=== PATIENT | male | born 1975 | race Caucasian/White ===

== ENCOUNTER → 2020-09-08 14:17 | Outpatient (CLI) | payer BC, SELFPAY ==
--- NOTE | ~2020-09-08 | XR_ITS ---
EXAMINATION: XR chest 2V EXAM DATE: 09/08/2020 14:49 INDICATION: Melanoma of back. TECHNIQUE: Frontal and lateral projections of the chest obtained and reviewed. There is no prior lisa dy for comparison. FINDINGS: The lungs are clear. There are no pleural effusions. The cardiomediastinal silhouette is within normal limits. There is no pneumothorax suspected. The bones and soft tissues are unremarkab le. IMPRESSION: Unremarkable chest x-ray exam. Reviewed, dictated and finalized at location B. [facility]CH
== END ==
PROVIDERS: Visit Provider Surgery
DX: C43.59 Malignant melanoma of other part of trunk (principal)
CPT/HCPCS: 71046

== ENCOUNTER 2021-01-28 09:46 | Outpatient (CLI) | payer BC, SELFPAY | END 2021-01-28 09:47 | disposition home or self-care (01) | LOC: ANHCOVIDVC 09:46 | DX: Z23 Encounter for immunization (principal) | CPT/HCPCS: 0001A; 91300 ==

== ENCOUNTER 2021-02-18 09:45 | Outpatient (CLI) | payer BC, SELFPAY | END 2021-02-18 09:46 | disposition home or self-care (01) | LOC: ANHCOVIDVC 09:45 | DX: Z23 Encounter for immunization (principal) | CPT/HCPCS: 0002A; 91300 ==

== ENCOUNTER → 2021-08-25 10:25 | Outpatient (CLI) | payer BC, SELFPAY ==
--- NOTE | ~2021-08-25 | XR_ITS ---
EXAMINATION: XR chest 2V 08/25/2021 10:47 INDICATION: Malignant melanoma PROCEDURE: 2 view chest COMPARISON: 09/08/2020 FINDINGS: The lungs are clear. The cardiomediastinal silhouette is within normal limits. There are no pleural effusions. There is no pneumothorax suspected. IMPRESSION: 1: NO ACUTE CARDIOPULMONARY DISEASE. Reviewed, dictated and finalized at location A. IN [place]
== END ==
PROVIDERS: Visit Provider Surgery
DX: C43.59 Malignant melanoma of other part of trunk (principal)
CPT/HCPCS: 71046

== ENCOUNTER → 2022-08-30 13:53 | Outpatient (CLI) | payer BC, SELFPAY ==
--- NOTE | ~2022-08-30 | XR_ITS ---
XR chest 2V DATE: 08/30/2022 14:02 INDICATION: History of melanoma of the back. Annual checkup. No complaints. TECHNIQUE: PA and lateral views COMPARISON: None FINDINGS: Chronic loss of height and anterior wedging of multiple lower thoracic vertebrae, stable si nce 08/25/2021. Mild thoracic dextroscoliosis. Normal heart size. No hilar or mediastinal enlargement. No pulmonary infiltrate or consolidation, ple ural effusion or pulmonary vascular congestion or pneumothorax. IMPRESSION: No active cardiopulmonary disease or significant change since 08/25/2021 Reviewed, dictated and finalized at location A. GEMENT RECRUITER IMPRESSION: No active cardiopulmonary disease or significant change since 2020
== END ==
PROVIDERS: PCP Family Medicine; Visit Provider Surgery
DX: C43.59 Malignant melanoma of other part of trunk (principal)
CPT/HCPCS: 71046

== ENCOUNTER → 2023-01-11 07:52 | Outpatient (CLI) | payer BC, SELFPAY ==
--- NOTE | ~2023-01-11 | MR_ITS ---
MRI of the right hand CLINICAL HISTORY: Pain TECHNIQUE: Axial T1-weighted and T2 fat-sat images, coronal T1-weighted and T2 fat-sat images, and sa gittal T1-weighted and T2 fat-sat images were acquired. FINDINGS: Bone marrow signals are unremarkable. There is no bone marrow edema or fracture. No evidenc e for osteomyelitis. No cortical destructive change or periosteal reaction seen. No joint effusion id entified. Collateral ligaments the visualized joints appear intact. Flexor and extensor tendons are intact. Visual is musculature of the hand is unremarkable. No soft ti ssue mass or fluid collection evident. No significant soft tissue edema identified. IMPRESSION: No significant abnormality seen. Reviewed, dictated and finalized at location .
== END ==
PROVIDERS: PCP Family Medicine; Visit Provider Orthopaedic Surgery
DX: M79.641 Pain in right hand (principal)
CPT/HCPCS: 73218

== ENCOUNTER → 2023-06-30 13:05 | Outpatient (CLI) | payer BC, SELFPAY ==
--- NOTE | ~2023-06-30 | XR_ITS ---
EXAMINATION: XR chest 2V 06/30/2023 13:31 INDICATION: Personal history of malignant melanoma. PROCEDURE: 2 view chest COMPARISON: 08/30/2022 FINDINGS: The lungs are clear. The cardiomediastinal silhouette is within normal limits. There are no pleural effusions. There is no pneumothorax suspected. IMPRESSION: 1: NO ACUTE CARDIOPULMONARY DISEASE. Reviewed, dictated and finalized at location L.
== END ==
DX: Z85.820 Personal history of malignant melanoma of skin (principal); L82.1 Other seborrheic keratosis; L57.0 Actinic keratosis; L81.4 Other melanin hyperpigmentation; D22.5 Melanocytic nevi of trunk; D22.4 Melanocytic nevi of scalp and neck; D22.61 Melanocytic nevi of right upper limb, including shoulder; D22.62 Melanocytic nevi of left upper limb, including shoulder; D22.71 Melanocytic nevi of right lower limb, including hip; L71.8 Other rosacea; D48.5 Neoplasm of uncertain behavior of skin
CPT/HCPCS: 71046

== ENCOUNTER 2024-04-13 11:00 | Emergency (ER) | payer BC, SELFPAY ==
[2024-04-13 11:02] VITALS: BP 141/112; PULSE 118; RESP 18; TEMP 36.5; O2SAT 100
--- NOTE | 2024-04-13 11:21 | PC.NURSE ---
Patient reports pain to right congregation that is worse on palpation or with clenching his jaw. patient reports family history of brain cancer and does report a self history of TMJ. patient also notes that he still has his wisdom teeth and wonders if that could be causing some discomfort.
--- NOTE | 2024-04-13 12:44 | ED.GENADULT ---
HPI - General Adult General Chief complaint: Unspecified Stated complaint: pain in R islam x 3 days Time Seen by Provider: 04/13/24 12:12 History of Present Illness HPI narrative: Patient is a 48-year-old male who presents to the emergency department this afternoon complaining of right temporal pain. Patient states that he noticed it a few days ago and call his primary care physician office and was told that his PCP is out on medical leave until the end of April. They were unable to get him to be seen any time soon and due to concern for possible temporal arteritis patient was sent here for further evaluation as he was told this is a time sensitive matter. 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 patient wears a CPAP at night, is on sure of any teeth grinding while asleep, and denies any additional symptoms or concerns at this time. Related Data Home Medications Medication Instructions Recorded Confirmed verapamil 120 mg 24 hr 120 mg PO DAILY 11/25/21 09/07/23 capsule,extended release galcanezumab-gnlm 120 mg/mL 120 mg subcut MONTHLY 04/13/22 09/07/23 subcutaneous pen injector (Emgality Pen) cholecalciferol (vitamin D3) 250 250 mcg PO WEEKLY 06/08/23 09/07/23 mcg (10,000 unit) capsule Allergies Allergy/AdvReac Type Severity Reaction Status Date / Time No Known Allergies Allergy Verified 09/06/23 10:29 Review of Systems Review of Systems: All systems are reviewed and are negative unless stated otherwise in the HPI. [facility] Past Medical History Medical History Anxiety Bee sting allergy Chronic kidney disease, stage 3a Dyslipidemia Essential (primary) hypertension Family history of prostate cancer in father GERD without esophagitis History of melanoma Intractable migraine without aura and without status migrainosus Seasonal allergies Sleep apnea in adult Social anxiety disorder Vitamin D deficiency Surgical History Surgical History History of melanoma excision x2 History of vasectomy Family History Family History Father Malignant neoplasm of prostate Other Family history of hearing loss Family history of malignant neoplasm of brain Skin cancer Social History Social History Smoking status: Never smoker Second hand tobacco smoke exposure: No Alcohol intake: current Alcohol use details: consumes 4 beers monthly Substance use: never Substance use type: does not use Lack of Transportation: No Lack of Food: Never True Current Housing: I Have Housing Concerned About Future Housing: No Difficulty Paying Gas/Electric Bills: No Difficulty Paying for Meds: No Currently Unemployed: No Education: Bachelor's Degree Difficulty w/ Childcare or Family Care: No Living arrangements: with family Occupation/Education: occupation 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 HEENT: PERRL, no rhinorrhea, no post nasal drip, oropharynx clear, tenderness to palpation over the right temporal region and right TMJ region. Cardiovascular: Regular rate and rhythm, no murmurs, rubs or gallops, no peripheral edema. Respiratory: Clear to auscultation bilaterally, no tachypnea, no wheezing, no rhonchi, no rubs, no respiratory distress. Abdomen: Soft, nontender, nondistended, no rebound, no guarding, no peritoneal signs. Musculoskeletal: No joint swelling or deformity, normal muscle tone. Skin: No rashes or petechia, no signs of infection. Neurological: Alert and oriented to person, place,
[2024-04-13 13:32] LABS: Basophils Absolute Auto 0.1 K/mm3 (0.0-0.1); Basophils Percent Auto 0.7 % (0.2-1.2); Eosinophils Absolute Auto 0.1 K/mm3 (0-0.3); Eosinophils Percent Auto 0.7 % (0-4.4); Hematocrit 44.9 % (42.0-52.0); Hemoglobin 15.3 g/dL (14.0-18.0); Immature Granulocyte Absolute 0.03 K/mm3 (0.00-0.031); Immature Granulocyte Percent A 0.4 % (0-0.5); Lymphocytes Absolute Auto 1.18 K/mm3 (0.9-3.2); Lymphocytes Percent Auto 14.2 % (18.3-44.2); Mean Corpuscular HGB Conc 34.1 g/dl (32-36); Mean Corpuscular Volume 82.2 fl (80-100); Mean Platelet Volume 11.2 fl (7.4-10.4); Monocytes Absolute Auto 0.4 K/mm3 (0.1-0.6); Neutrophils Absolute Auto 6.6 K/mm3 (1.3-6.7); Platelet Count Result 268 k/mm3 (150-375); Red Blood Count 5.46 M/mm3 (4.6-6.20); Red Cell Distribution Width 12.3 % (11.5-14.5); White Blood Count 8.3 K/mm3 (4.5-10.0)
[2024-04-13 13:46] LABS: Alanine Aminotransferase 14 U/L (6-50); Albumin Level 4.7 g/dL (3.5-5.1); Alkaline Phosphatase 47 U/L (38-126); Anion Gap 10 mmol/L (4-12); Aspartate Amino Transferase 21 U/L (17-59); Bilirubin,Total 0.8 mg/dL (0.2-1.3); Blood Urea Nitrogen 17 mg/dL (9-20); CRP < 0.5 mg/dL (<1.0); Carbon Dioxide 21 mmol/L (22-30); Chloride 112 mmol/L (98-107); Estimated CRCL calculation 77 ml/min; Estimated Glomerular Filt Rate 59; Glucose 90 mg/dL (65-110); Magnesium 2.2 mg/dL (1.6-2.3); Potassium 4.1 mmol/L (3.4-5.0); Sodium 143 mmol/L (137-145)
[2024-04-13 14:06] LABS: Erythrocyte Sedimentation Rate 11 mm/hr (0-20)
== END 2024-04-13 14:39 | disposition home or self-care (01) ==
PROVIDERS: Emergency Provider Emergency Medicine; PCP Family Medicine
DX: M26.601 Right temporomandibular joint disorder, unspecified (principal); F41.9 Anxiety disorder, unspecified; I12.9 Hypertensive chronic kidney disease with stage 1 through stage 4 chronic kidney disease, or unspecified chronic kidney disease; N18.31 Chronic kidney disease, stage 3a; K21.9 Gastro-esophageal reflux disease without esophagitis; G47.30 Sleep apnea, unspecified
CPT/HCPCS: 36415; 80053; 83735; 85025; 85652; 86140; 99283

== ENCOUNTER 2024-09-03 14:27 | Outpatient (CLI) | payer BC, SELFPAY ==
[2024-09-03 20:56] LABS: Influenza A QL RT-PCR Negative (Negative); Influenza B QL RT-PCR Negative (Negative); RSV RNA, RT-PCR Negative (Negative); SARS-CoV-2 RNA PCR Positive (Negative)
== END 2024-09-03 14:28 | disposition home or self-care (01) ==
LOC: ANHGOSHLAB 14:29
PROVIDERS: PCP Family Medicine; Visit Provider Family Medicine
DX: U07.1 COVID-19 (principal)
CPT/HCPCS: 87637

== ENCOUNTER 2025-07-15 15:23 | Observation (INO) | payer BC, SELFPAY ==
[2025-07-15] VITALS (7 sets, daily range): BP systolic 121–156; BP diastolic 70–102; PULSE 79–103; RESP 13–16; TEMP 36.4–36.9; O2SAT 92–100
--- NOTE | ~2025-07-15 | US_ITS ---
ULTRASOUND ABDOMEN LIMITED (RIGHT UPPER QUADRANT) Clinical History: Evaluate for gallstones Comparison: CT 1 day prior Technique: Right upper quadrant sonography Findings: Liver: Normal size. Echogenic. No intrahepatic biliary ductal dilatation. 2.3 cm cyst left lobe. Ill-defined lesion right lobe 3.5 cm, hypoechoic. Normal hepatopedal flow main portal vein. Common Duct: Normal caliber. 5 mm. Gallbladder: No stones. No wall thickening. No pericholecystic fluid. Pancreas: Obscured by bowel gas. IMPRESSION: 1. No acute findings. No gallstones or evidence of cholecystitis. 2. Incompletely seen lesion right lobe liver with indeterminate ultrasound characteristics, although CT characteristics most consistent with hemangioma. Recommend six-month follow-up ultrasound. Alternatively, MRI liver protocol for definitive characterization obviating need for future surveillance if in fact a hemangioma. Reviewed, dictated and finalized at location R. IMPRESSION: 1. No acute findings. No gallstones or evidence of cholecystitis. 2. Incompletely seen lesion right lobe liver with indeterminate ultrasound roverto racteristics, although CT characteristics most consistent with hemangioma. Geovanni mmend six-month follow-up ultrasound. Alternatively, MRI liver protocol for def initive characterization obviating need for future surveillance if in fact a he mangioma.
--- NOTE | ~2025-07-15 | CT_ITS ---
Exam: CT abdomen and pelvis with contrast Clinical History: [Epigastric pain and back pain ] Comparison: [ 08/14/2019] Technique: Multiple axial CT images of the abdomen and pelvis were obtained with IV contrast. Sagittal and coronal reformatted images were obtained. FINDINGS: Lung bases: [Small opacities in the lower lungs. ] 3 mm pulmonary nodule in the right middle lobe. Liver: Grossly stable probable hemangioma in the posterior segment of the right lobe of the liver. [ No intrahepatic biliary duct dilatation.] There is a 1.5 cm fluid attenuation lesion in the left lobe of the liver which is favored to represent a liver cyst. Gallbladder: [ No wall thickening or stones.] Common bile duct: [ Normal caliber.] [ No stones.] Spleen: [ Within normal limits.] Pancreas: [ No mass. No pancreatic fluid collection.] Adrenals: [ No masses.] Kidneys: [ No masses. No hydronephrosis.][ ] Lymph nodes: [ No adenopathy in the abdomen or pelvis.] Stomach, small bowel and colon: Small hiatal hernia. Thickening of the he of the duodenum and jejunum with small amount of surrounding fat stranding. Duodenitis/ileitis is possible. Recommend follow-up to resolution to exclude an underlying mass. Peritoneum cavity: [ No mesenteric fat stranding or fluid.] Bladder: [ Unremarkable.] Osseous structures: [Multilevel degenerative change in the visualized spine.] Possible old mild compression fractures in the lower thoracic spine of indeterminate age. Correlate clinically. Abdominal aorta: [ No aneurysm.] Additional findings: Small fat-containing right inguinal hernia. Small fat- containing left inguinal hernia. IMPRESSION: 1. Thickening of the he of the duodenum and jejunum with small amount of surrounding fat stranding. Duodenitis/ileitis is possible. Recommend follow-up to resolution to exclude an underlying mass. 2. Small hiatal hernia. 3. Grossly stable probable hemangioma in the posterior segment of the right lobe of the liver. 4. There is a 1.5 cm fluid attenuation lesion in the left lobe of the liver which is favored to represent a liver cyst. 5. Possible old mild compression fractures in the lower thoracic spine of indeterminate age. Correlate clinically. 6. Small fat-containing bilateral inguinal hernias, larger on the right. Findings as above. Reviewed, dictated and finalized at location Q. IMPRESSION: 1. Thickening of the he of the duodenum and jejunum with small amount of lily rounding fat stranding. Duodenitis/ileitis is possible. Recommend follow-up to resolution to exclude an underlying mass. 2. Small hiatal hernia. 3. Grossly stable probable hemangioma in the posterior segment of the right lob e of the liver. 4. There is a 1.5 cm fluid attenuation lesion in the left lobe of the liver whi ch is favored to represent a liver cyst. 5. Possible old mild compression fractures in the lower thoracic spine of indet erminate age. Correlate clinically. 6. Small fat-containing bilateral inguinal hernias, larger on the right. Findings as above.
--- NOTE | ~2025-07-15 | MR_ITS ---
EXAMINATION: MR MRCP wo/w con/w 3D wo ind DATE: 07/17/2025 11:38 INDICATION: Pancreatitis. Duodenitis. TECHNIQUE: Magnetic resonance imaging (MRI) of the abdomen was performed without and with 20 mL MultiHance intravenous contrast. Sequences included coronal T2- weighted FS FSE, coronal T2-weighted FSE, axial T1-weighted LAVA, coronal FS FIESTA, axial dual-echo T1-weighted SPGR, coronal lava-FLEX, sagittal T2- weighted FSE, axial T2-weighted FSE, and axial DWI. Thick-slab T2-weighted FSE images were obtained for magnetic resonance cholangiopancreatography (MRCP). Maximum intensity projection 3-D reconstructions of the volumetric data were created by the technologist. Postcontrast sequences included coronal LAVA-flex and time course of axial T1-weighted LAVA. COMPARISON: CT abdomen and pelvis 07/15/2025 FINDINGS: ABDOMEN MRI: There are trace pleural effusions. There is diffuse hepatic steatosis. There is a 5.3 cm mass in right hepatic lobe with interrupted peripheral puddling of contrast, consistent with a hemangioma. There are cysts in the liver measuring up to 17 mm. The gallbladder, spleen, adrenal glands, and kidneys are normal. There is fat stranding around the head of the pancreas with wall thickening of the second portion of the duodenum. There is a small sliding hiatal hernia. There are no dilated loops of bowel. There is no ascites. There are no pathologically enlarged lymph nodes. ABDOMEN MRCP: The common duct is normal and measures 2 mm. No choledocholithiasis. IMPRESSION: 1. Acute interstitial pancreatitis with secondary inflammation of the duodenum. 2. Diffuse hepatic steatosis. 3. Small sliding hiatal hernia. Reviewed, dictated and finalized at location E.
[2025-07-15 15:43] LABS: Hematocrit 45.9 % (42.0-52.0); Hemoglobin 15.2 g/dL (14.0-18.0); Immature Granulocyte Percent A 0.7 % (0-0.5); Lymphocytes Absolute Auto 1.53 K/mm3 (0.9-3.2); Mean Corpuscular HGB Conc 33.1 g/dl (32-36); Mean Corpuscular Hemoglobin 27.8 pg (26-34); Mean Corpuscular Volume 84.1 fl (80-100); Nucleated Red Blood Cells Absolute Auto 0.000 K/mm3 (0.0-0.012); Nucleated Red Blood Cells Perc 0.0 % (0.0-0.2); Platelet Count Result 353 k/mm3 (150-375); Red Blood Count 5.46 M/mm3 (4.6-6.20); White Blood Count 13.0 K/mm3 (4.5-10.0)
[2025-07-15 15:45] LABS: Add Urine Microscopic? NO; Appearance Urine Clear (Clear); Glucose Urine UA Negative (Negative); Leukocyte Esterase Ur Negative LEU/UL (Negative); Nitrate Urine Negative (Negative); Specific Grav Ur 1.028 (1.001-1.035)
[2025-07-15 15:58] LABS: Alanine Aminotransferase 28 U/L (6-50); Albumin Level 5.0 g/dL (3.5-5.1); Alkaline Phosphatase 52 U/L (38-126); Anion Gap 14 mmol/L (4-12); Aspartate Amino Transferase 31 U/L (17-59); Bilirubin,Total 0.4 mg/dL (0.2-1.3); Blood Urea Nitrogen 25 mg/dL (9-20); Calcium 9.1 mg/dL (8.4-10.2); Carbon Dioxide 22 mmol/L (22-30); Chloride 108 mmol/L (98-107); Estimated CRCL calculation 55 ml/min; Estimated Glomerular Filt Rate 40; Glucose 100 mg/dL (65-110); Potassium 3.8 mmol/L (3.4-5.0); Sodium 144 mmol/L (137-145); Total Protein 8.3 g/dL (6.3-8.2)
--- NOTE | 2025-07-15 16:05 | ED.ABDPAIN ---
HPI - Abdominal Pain General Chief Complaint: Abdominal Pain <Vilma Barr PA-C - Last Filed: 07/15/25 18:25> Stated Complaint: abdominal pain, back <GERMAN Shirley Last Filed: 07/15/25 18:25> Time Seen by Provider: 07/15/25 15:31 <Vilma Barr PA-C - Last Filed: 07/15/25 18:25> Source: patient <GERMAN Shirley Last Filed: 07/15/25 18:25> Mode of arrival: ambulatory <GERMAN Shirley Last Filed: 07/15/25 18:25> Limitations: no limitations <GERMAN Shirley Last Filed: 07/15/25 18:25> History of Present Illness HPI narrative: This is a 50 year old male that presents to the ER for abdominal pain, back pain. Ongoing since after lunch. Reports nausea. Denies fever, vomiting, diarrhea, dysuria. <GERMAN Shirley Last Filed: 07/15/25 18:25> Related Data Home Medications: Home Medications ?Medication ?Instructions ?Recorded ?Confirmed ?Last Taken ?Type galcanezumab-gnlm 120 mg/mL 120 mg subcut MONTHLY 04/13/22 07/15/25 07/08/25 History subcutaneous pen injector (Emgality Pen) cholecalciferol (vitamin D3) 50 50 mcg PO DAILY 06/13/24 07/15/25 07/14/25 History mcg (2,000 unit) tablet esomeprazole magnesium 20 mg 20 mg PO DAILY 06/13/24 07/15/25 07/15/25 History tablet,delayed release (Nexium 24HR) sumatriptan succinate 100 mg 100 mg PO .COMPLEX PRN migraine 05/08/25 07/15/25 07/14/25 History tablet (Imitrex) headache atorvastatin 10 mg tablet 10 mg PO QHS 06/12/25 07/15/25 07/14/25 History <GERMAN Shirley Last Filed: 07/15/25 18:25> Allergies/Adverse Reactions: Allergies Allergy/AdvReac Type Severity Reaction Status Date / Time No Known Allergies Allergy Verified 07/15/25 15:37 <Vilma Barr PA-C - Last Filed: 07/15/25 18:25> Review of Systems Review of Systems: All systems reviewed & are unremarkable except as noted in HPI and below <Vilma Barr PA-C - Last Filed: 07/15/25 18:25> [facility] Past Medical History Medical History: Medical History Seasonal allergies Chronic kidney disease, stage 3a Vitamin D deficiency Sleep apnea in adult Essential (primary) hypertension Family history of prostate cancer in father Dyslipidemia Anxiety Bee sting allergy History of melanoma Social anxiety disorder Intractable migraine without aura and without status migrainosus GERD without esophagitis <Vilma Barr PA-C - Last Filed: 07/15/25 18:25> Surgical History Surgical History: Surgical History History of melanoma excision x2 right nshoulder - 2022 and right lower back - 2018 History of vasectomy (~2017) <Vilma Barr PA-C - Last Filed: 07/15/25 18:25> Family History Family History: Family History Father Malignant neoplasm of prostate Other Family history of hearing loss Family history of malignant neoplasm of brain Skin cancer <Vilma Barr PA-C - Last Filed: 07/15/25 18:25> Social History Social History: Social History Smoking status: Never smoker Second hand tobacco smoke exposure: No Alcohol intake: never Alcohol use details: consumes 4 beers monthly Substance use: never Substance use type: does not use Lack of Transportation: No Lack of Food: Never True Current Housing: I Have Housing Concerned About Future Housing: No Difficulty Paying Gas/Electric Bills: No Difficulty Paying for Meds: No Currently Unemployed: No Education: Trade/Vocational Certificate Difficulty w/ Childcare or Family Care: No Living arrangements: with family Occupation/Education: occupation 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 HEAD: Normocephalic, atraumatic. EYES: EOMI. CHEST: Clear to auscultation. No respiratory distress. No wheezes rales or rhonchi HEART: Regular rate and rhythm. No murmur heard. Normal peripheral pulses. ABDOMEN: Soft, nondistended, normal active bowel sounds. Tender to palpation in the right upper quadrant and epigastrium, without guarding EXTREMITIES: Normal range of motion. No edema. SKIN: Warm, dry, no rash. NEURO: No focal deficits. Alert and oriented x3. PSYCH: Normal mood and affect <Vilma Barr PA-C - Last Filed: 07/15/25 18:25> Course Course Emergency Course: patient updated on workup and need for admission <Vilma Barr PA-C - Last Filed: 07/15/25 18:25> [employer] WRESTLER/PA Physician Supervision This visit was performed by both a physician and an APC. I performed all aspects of the MDM as documented. <Ramirez Lawler MD - Last Filed: 07/15/25 21:01> Consultations Consultation #1: Spoke with hospitalist about patient and workup who accepts admission <Vilma Barr PA-C - Last Filed: 07/15/25 18:25> Date: 07/15/25 <Vilma Barr PA-C - Last Filed: 07/15/25 18:25> Consultation #2: Spoke with GI who will consult <Vilma Barr PA-C - Last Filed: 07/15/25 18:25> Date: 07/15/25 <GERMAN Shirley Last Filed: 07/15/25 18:25> Vital Signs Vital signs: Vital Signs Temperature 97.6 F 07/15/25 15:28 Pulse Rate 103 H 07/15/25 15:28 Respiratory Rate 13 07/15/25 15:28 Blood Pressure 153/102 H 07/15/25 15:28 Pulse Oximetry 100 07/15/25 15:28 Oxygen Delivery Room Air 07/15/25 15:28 Temperature 97.8 F 07/15/25 18:11 Pulse Rate 86 07/15/25 18:42 Respiratory Rate 15 07/15/25 18:42 Blood Pressure 156/98 H 07/15/25 18:42 Pulse Oximetry 100 07/15/25 18:42 Oxygen Delivery Room Air 07/15/25 15:28 <Vilma Barr PA-C - Last Filed: 07/15/25 18:25> Vital Signs Temperature 97.6 F 07/15/25 15:28 Pulse Rate 103 H 07/15/25 15:28 Respiratory Rate 13 07/15/25 15:28 Blood Pressure 153/102 H 07/15/25 15:28 Pulse Oximetry 100 07/15/25 15:28 Oxygen Delivery Room Air 07/15/25 15:28 Temperature 97.8 F 07/15/25 18:11 Pulse Rate 86 07/15/25 18:42 Respiratory Rate 15 07/15/25 18:42 Blood Pressure 156/98 H 07/15/25 18:42 Pulse Oximetry 100 07/15/25 18:42 Oxygen Delivery Room Air 07/15/25 15:28 <Ramirez Lawler MD - Last Filed: 07/15/25 21:01> MDM - Abdominal Pain MDM Narrative Medical decision making narrative: Patient presents to the emergency department for epigastric abdominal pain with radiation to the back. He is afebrile and nontoxic appearing. Tachycardic upon arrival, this normalized with IV fluids. CBC with mild leukocytosis to 13. Metabolic panel with some evidence of dehydration. Patient hydrated with 2 L of IV fluids. Lipase is 2702. Urine without evidence of infection. CT abdomen pelvis showing duodenitis/ileitis. Several incidental findings including hiatal hernia, liver cysts, old compression fractures, inguinal hernias. patient updated on workup and need for admission. Spoke with hospitalist about patient and workup who accepts admission. Will consult GI <Vilma Barr PA-C - Last Filed: 07/15/25 18:25> Differential Diagnosis Differential diagnosis: Likely gastroenteritis, pancreatitis and other (biliary colic) <Vilma Barr PA-C - Last Filed: 07/15/25 18:25> Lab Data Attestation: I reviewed the patient's lab results. <Vilma Barr PA-C - Last Filed: 07/15/25 18:25> Result diagrams: 07/15/25 15:36 07/15/25 15:36 <Vilma Barr PA-C - Last Filed: 07/15/25 18:25> Labs: Lab Results 07/15/25 07/15/25 Range/Units 15:35 15:36 WBC 13.0 H (4.5-10.0) K/mm3 RBC 5.46 (4.6-6.20) M/mm3 Hgb 15.2 (14.0-18.0) g/dL Hct 45.9 (42.0-52.0) % MCV 84.1 (80-100) fl MCH 27.8 (26-34) pg MCHC 33.1 (32-36) g/dl RDW 12.5 (11.5-14.5) % Plt Count 353 (150-375) k/mm3 MPV 10.8 H (7.4-10.4) fl Immature Gran % (Auto) 0.7 H (0-0.5) % Neut % (Auto) 81.3 H (45.5-73.1) % Lymph % (Auto) 11.8 L (18.3-44.2) % Bledsoe % (Auto) 4.8 (2.6-8.5) % Eos % (Auto) 0.6 (0-4.4) % Baso % (Auto) 0.8 (0.2-1.2) % Lymph # (Auto) 1.53 (0.9-3.2) K/mm3 Bledsoe # (Auto) 0.6 (0.1-0.6) K/mm3 Eos # (Auto) 0.1 (0-0.3) K/mm3 Baso # (Auto) 0.1 (0.0-0.1) K/mm3 Abs Immat Gran (auto) 0.09 H (0.00-0.031) K/mm3 Absolute Neuts (auto) 10.6 H (1.3-6.7) K/mm3 Absolute Nucleated RBC 0.000 (0.0-0.012) K/mm3 Nucleated RBC % 0.0 (0.0-0.2) % Sodium 144 (137-145) mmol/L Potassium 3.8 (3.4-5.0) mmol/L Chloride 108 H (98-107) mmol/L Carbon Dioxide 22 (22-30) mmol/L Anion Gap 14 H (4-12) mmol/L BUN 25 H (9-20) mg/dL Creatinine 1.80 H (0.7-1.3) mg/dL Estim Creat Clear Calc 55 ml/min Estimated GFR 40 L (59 - ) Glucose 100 (65-110) mg/dL Calcium 9.1 (8.4-10.2) mg/dL Total Bilirubin 0.4 (0.2-1.3) mg/dL AST 31 (17-59) U/L ALT 28 (6-50) U/L Alkaline Phosphatase 52 (38-126) U/L Total Protein 8.3 H (6.3-8.2) g/dL Albumin 5.0 (3.5-5.1) g/dL Triglycerides 245 H (<150) mg/dL Lipase 2702 H (23-300) U/L Urine Color Yellow (Yellow) Urine Appearance Clear (Clear) Urine pH 5.5 (5.0-9.0) Ur Specific Dante 1.028 (1.001-1.035) Urine Protein Negative (Negative) mg/dL Urine Glucose (UA) Negative (Negative) mg/dL Urine Ketones Negative (Negative) mg/dL Ur Blood (Man) Negative (Negative) Urine Nitrate Negative (Negative) Urine Bilirubin Negative (Negative) Urine Urobilinogen 1.0 (<2.0) mg/dL Leukocyte Esterase Rfl Negative (Negative) MERVAT/UL <Vilma Barr PA-C - Last Filed: 07/15/25 18:25> Lab Results 07/15/25 07/15/25 Range/Units 15:35 15:36 WBC 13.0 H (4.5-10.0) K/mm3 RBC 5.46 (4.6-6.20) M/mm3 Hgb 15.2 (14.0-18.0) g/dL Hct 45.9 (42.0-52.0) % MCV 84.1 (80-100) fl MCH 27.8 (26-34) pg MCHC 33.1 (32-36) g/dl RDW 12.5 (11.5-14.5) % Plt Count 353 (150-375) k/mm3 MPV 10.8 H (7.4-10.4) fl Immature Gran % (Auto) 0.7 H (0-0.5) % Neut % (Auto) 81.3 H (45.5-73.1) % Lymph % (Auto) 11.8 L (18.3-44.2) % Bledsoe % (Auto) 4.8 (2.6-8.5) % Eos % (Auto) 0.6 (0-4.4) % Baso % (Auto) 0.8 (0.2-1.2) % Lymph # (Auto) 1.53 (0.9-3.2) K/mm3 Bledsoe # (Auto) 0.6 (0.1-0.6) K/mm3 Eos # (Auto) 0.1 (0-0.3) K/mm3 Baso # (Auto) 0.1 (0.0-0.1) K/mm3 Abs Immat Gran (auto) 0.09 H (0.00-0.031) K/mm3 Absolute Neuts (auto) 10.6 H (1.3-6.7) K/mm3 Absolute Nucleated RBC 0.000 (0.0-0.012) K/mm3 Nucleated RBC % 0.0 (0.0-0.2) % Sodium 144 (137-145) mmol/L Potassium 3.8 (3.4-5.0) mmol/L Chloride 108 H (98-107) mmol/L Carbon Dioxide 22 (22-30) mmol/L Anion Gap 14 H (4-12) mmol/L BUN 25 H (9-20) mg/dL Creatinine 1.80 H (0.7-1.3) mg/dL Estim Creat Clear Calc 55 ml/min Estimated GFR 40 L (59 - ) Glucose 100 (65-110) mg/dL Calcium 9.1 (8.4-10.2) mg/dL Total Bilirubin 0.4 (0.2-1.3) mg/dL AST 31 (17-59) U/L ALT 28 (6-50) U/L Alkaline Phosphatase 52 (38-126) U/L Total Protein 8.3 H (6.3-8.2) g/dL Albumin 5.0 (3.5-5.1) g/dL Triglycerides 245 H (<150) mg/dL Lipase 2702 H (23-300) U/L Urine Color Yellow (Yellow) Urine Appearance Clear (Clear) Urine pH 5.5 (5.0-9.0) Ur Specific Dante 1.028 (1.001-1.035) Urine Protein Negative (Negative) mg/dL Urine Glucose (UA) Negative (Negative) mg/dL Urine Ketones Negative (Negative) mg/dL Ur Blood (Man) Negative (Negative) Urine Nitrate Negative (Negative) Urine Bilirubin Negative (Negative) Urine Urobilinogen 1.0 (<2.0) mg/dL Leukocyte Esterase Rfl Negative (Negative) MERVAT/UL <Ramirez Lawler MD - Last Filed: 07/15/25 21:01> Imaging Data Radiologist's impression: ITS Impressions Abdomen/Pelvis CT 07/15/25 16:18 IMPRESSION: 1. Thickening of the he of the duodenum and jejunum with small amount of surrounding fat stranding. Duodenitis/ileitis is possible. Recommend follow-up to resolution to exclude an underlying mass. 2. Small hiatal hernia. 3. Grossly stable probable hemangioma in the posterior segment of the right lobe of the liver. 4. There is a 1.5 cm fluid attenuation lesion in the left lobe of the liver which is favored to represent a liver cyst. 5. Possible old mild compression fractures in the lower thoracic spine of indeterminate age. Correlate clinically. 6. Small fat-containing bilateral inguinal hernias, larger on the right. Findings as above. <Vilma Barr PA-C - Last Filed: 07/15/25 18:25> ITS Impressions Abdomen/Pelvis CT 07/15/25 16:18 IMPRESSION: 1. Thickening of the he of the duodenum and jejunum with small amount of surrounding fat stranding. Duodenitis/ileitis is possible. Recommend follow-up to resolution to exclude an underlying mass. 2. Small hiatal hernia. 3. Grossly stable probable hemangioma in the posterior segment of the right lobe of the liver. 4. There is a 1.5 cm fluid attenuation lesion in the left lobe of the liver which is favored to represent a liver cyst. 5. Possible old mild compression fractures in the lower thoracic spine of indeterminate age. Correlate clinically. 6. Small fat-containing bilateral inguinal hernias, larger on the right. Findings as above. <Ramirez Lawler MD - Last Filed: 07/15/25 21:01> Critical Care Time Critical Care Time Critical Care Time: No <Vilma Barr PA-C - Last Filed: 07/15/25 18:25> Discharge Plan Discharge Clinical Impression: Dehydration, Duodenitis Pancreatitis Qualifiers: Chronicity: acute Pancreatitis type: unspecified pancreatitis type Acute pancreatitis complication: no infection or necrosis Qualified Code(s): K85.90 - Acute pancreatitis without necrosis or infection, unspecified <Vilma Barr PA-C - Last Filed: 07/15/25 18:25> Patient Disposition: Still a Patient <Vilma Barr PA-C - Last Filed: 07/15/25 18:25> Condition: Stable <Vilma Barr PA-C - Last Filed: 07/15/25 18:25>
[2025-07-15] MEDS: MORPHINE SULFATE (*CRX) 4 MG/ML INJ IV PUSH (16:06)
[2025-07-15] MEDS: FAMOTIDINE 20 MG/2 ML VIAL IV PUSH (16:06)
[2025-07-15] MEDS: ONDANSETRON INJ 4 MG/2 ML VIAL IV PUSH ×2 (16:06→20:39)
[2025-07-15] MEDS: LACTATED RINGERS 1,000 ML 999 ML IV CONT ×2 (16:06→17:45)
[2025-07-15 16:08] LABS: Lipase 2702 U/L (23-300)
--- OUTSIDE RECORDS SUMMARY | 2025-07-15 16:14 | XMS_ITS | Encounter Summary ---
Author Organization [facility] Address [address] [place] [address] Phone Care Team Providers Care Director Of Mechanical Engineering Name Role Phone Yuniel Perkins MD Primary Care Provider Love De La Rosa APRN, SHIPPING CLERK Unavailable [phone] Lianet Lombardo APRN, SOFTBALL WINDER Unavailable [phone] Bryce Servin MD Unavailable Reason for Visit * Reason Comments Medication Refill Encounter Details Date Type Department Care Team (Late st Contact Info) Description 03/21/2024 Refill [facility] - Neurology [facility] [address] [place] [id number] Love De La Rosa, ONCOLOGY PHYSICIAN ASSISTANT, SHIPPING CLERK [address] [place] [address] Medication Refill Social History Tobacco Use Types Packs/Day Years Used Date Smoking Tobacco: Never Smokeless Tobacco: Never Alcohol Use Standard Drinks/Week Comments Not Currently 0 (1 standard drink = 0.6 oz pur e alcohol) Sex and Gender Information Value Date Recorded Sex Assigned at Not on file Legal Sex Male 11:25 AM CDT Gender Identity Not on file Sexual Orientation Not on file documented as of this encounter Miscellaneous Notes * Telephone Encounter - Fannie Rivas RN - 03/21/2024 9:46 AM CDT Medication failed the protocol, provider to review and approve the medication order if appropriate. Requested Prescriptions Pending Prescriptions Disp Refills verapamil CR (VERELAN) 120 MG CAPSULE SR 24 HR [Pharmacy Med Name: Verapamil HCl ER 120 MG Oral Capsule Extended Release 24 Hour] 90 Capsule 0 Sig: Take 1 capsule by mouth once daily Calcium-Channel Blockers Protocol Failed - 03/21/2024 9:32 AM Failed - BP on record in the past year Clinician-entered: BP Readings from Last 3 Encounters: 02/21/23 126/82 01/10/23 122/68 10/12/22 124/88 Patient-entered: No data recorded Passed - Visit with relevant provider in past 12 months or upcoming 90 days Recent Visits Date Type Provider Dept 07/01/23 Telemedicine Love De La Rosa APRN, SHIPPING CLERK [facility] Showing recent visits within past 365 days and meeting all other requirements Future Appointments No visits were found meeting these conditions. Showing future appointments within next 90 days and meeting all other requirements documented in this encounter Plan of Treatment Upcoming Encounters Date Type Department Care Team (Late st Contact Info) Description 02/21/2026 10:00 AM CDT Telemedicine [facility] - Pulmonology & Sleep Medicine - [place] [address] [place] [address] Lianet Lombardo APRN, SOFTBALL WINDER [address] [address] 07/14/2026 9:00 AM CDT Telemedicine [facility] - Neurology - [place] [address] [place] [address] Love De La Rosa APRN, SHIPPING CLERK [address] [place] [address] documented as of this encounter Visit Diagnoses Not on filedocumented in this encounter Care Teams Director Of Mechanical Engineering Relationship Specialty Start Date End Date Yuniel Perkins MD PCP - General Family Medicine 07/13/21 Love De La Rosa APRN, SHIPPING CLERK [address] [place] [address] Nurse Practitioner Advanced Practice Nurse 01/04/22 Lianet Lombardo APRN, SOFTBALL WINDER [address] [address] Nurse Practitioner Advanced Practice Nurse 02/15/22 Bryce Servin MD [address] [place] [address] Consulting Physician Pulmonary Disease 02/21/23 documented as of this encounter
--- OUTSIDE RECORDS SUMMARY | 2025-07-15 16:14 | XMS_ITS | Encounter Summary ---
Author Organization [facility] Address [address] [place] [address] Phone Care Team Providers Care Commercial Real Estate Appraiser Name Role Phone Yuniel Perkins MD Primary Care Provider Love De La Rosa APRN, FUR FINISHER TAILOR Unavailable [phone]- [phone] Lianet Lombardo APRN, COURT STENOGRAPHER Unavailable [phone]- [phone] Bryce Servin MD Unavailable Reason for Visit * Reason Comments Medication Refill Encounter Details Date Type Department Care Team (Late st Contact Info) Description 08/14/2023 Refill [facility] - Neurology [facility] [address] [place] [phone] Love De La Rosa, WOOD PATTERN MAKER, FUR FINISHER TAILOR [address] [place] [address] Medication Refill Social History Tobacco Use Types [...] encounter Miscellaneous Notes * Telephone Encounter - Susan Jay RN - 08/15/2023 11:34 AM CDT Medication refilled and signed per [facility] chronic medication standing order for pediatric and adult patients. documented in this encounter Plan of Treatment Upcoming Encounters Date Type Department Care Team (Late st Contact Info) Description 02/21/2026 10:00 AM CDT Telemedicine [facility] - Pulmonology & Sleep Medicine - [place] [address]2 [place] [address] Lianet Lombardo APRN, COURT STENOGRAPHER #[address] [address] 07/14/2026 9:00 AM CDT Telemedicine [facility] Neurology - [place] [address] [place] [address] Love De La Rosa APRN, FUR FINISHER TAILOR [address] [place] [address] documented as of this encounter Visit Diagnoses Not on filedocumented in this encounter Care Teams Commercial Real Estate Appraiser Relationship Specialty Start Date End Date Yuniel Perkins MD PCP - General Family Medicine 07/13/21 Love De La Rosa APRN, FUR FINISHER TAILOR [address] [place] [address] Nurse Practitioner Advanced Practice Nurse 01/04/22 Lianet Lombardo APRN, COURT STENOGRAPHER #[address] [address] Nurse Practitioner Advanced Practice Nurse 02/15/22 Bryce Servin MD [address]2 [place] [address] Consulting Physician Pulmonary Disease 02/21/23 documented as of this encounter
--- OUTSIDE RECORDS SUMMARY | 2025-07-15 16:14 | XMS_ITS | Encounter Summary ---
Author Organization [facility] Address [address] [place] [address] Phone Care Team Providers Care Search Manager Name Role Phone Yuniel Perkins MD Primary Care Provider Love De La Rosa APRN, MIDDLE SCHOOL LIBRARIAN Unavailable [phone]- [phone] Lianet Lombardo APRN, HOME COMFORT ADVISOR Unavailable [phone]- [phone] Bryce Servin MD Unavailable Reason for Visit * Reason Comments Medication Refill Encounter Details Date Type Department Care Team (Late st Contact Info) Description 12/26/2023 Refill [facility] - Neurology [facility] [address]2 [place] [phone] Love De La Rosa, COOK RESTAURANT, MIDDLE SCHOOL LIBRARIAN [address] [place] [address] Medication Refill Social History Tobacco Use Types [...] encounter Miscellaneous Notes * Telephone Encounter - Libertad Degroot RN - 12/26/2023 11:18 AM CDT Medication(s) refilled and signed per [facility] Chronic Medication Refill Standing Order for Pediatricand Adult Patients. Requested Prescriptions Pending Prescriptions Disp Refills verapamil CR (VERELAN) 120 MG CAPSULE SR 24 HR [Pharmacy Med Name: Verapamil HCl ER 120 MG Oral Capsule Extended Release 24 Hour] 90 Capsule 0 Sig: Take 1 capsule by mouth once daily Calcium-Channel Blockers Protocol Passed - 12/26/2023 11:10 AM Passed - BP on record in the past year Clinician-entered: BP Readings from Last 3 Encounters: 02/21/23 126/82 01/10/23 122/68 10/12/22 124/88 Patient-entered: No data recorded Passed - Visit with relevant provider in past 12 months or upcoming 90 days Recent Visits Date Type Provider Dept 07/01/23 Telemedicine Love De La Rosa APRN, [facility] Neurology [facility] 01/10/23 Office Visit Love De La Rosa APRN, [facility] Neurology [facility] Showing recent visits within past 365 days and meeting all other requirements Future Appointments No visits were found meeting these conditions. Showing future appointments within next 90 days and meeting all other requirements documented in this encounter Plan of Treatment Upcoming Encounters Date Type Department Care Team (Late st Contact Info) Description 02/21/2026 10:00 AM CDT Telemedicine [facility] - Pulmonology & Sleep Medicine [facility] [address] [place] [address] Lianet Lombardo APRN, HOME COMFORT ADVISOR #[address] [address] 07/14/2026 9:00 AM CDT Telemedicine [facility] - Neurology - [place] [address] [place] [address] Love De La Rosa APRN, MIDDLE SCHOOL LIBRARIAN [address] [place] [address] documented as of this encounter Visit Diagnoses Not on filedocumented in this encounter Care Teams Search Manager Relationship Specialty Start Date End Date Yuniel Perkins MD PCP - General Family Medicine 07/13/21 Love De La Rosa APRN, MIDDLE SCHOOL LIBRARIAN [address] [place] [address] Nurse Practitioner Advanced Practice Nurse 01/04/22 Lianet Lombardo APRN, HOME COMFORT ADVISOR #[address] [address] Nurse Practitioner Advanced Practice Nurse 02/15/22 Bryce Servin MD [address] [place] [address] Consulting Physician Pulmonary Disease 02/21/23 documented as of this encounter
--- OUTSIDE RECORDS SUMMARY | 2025-07-15 16:14 | XMS_ITS | Encounter Summary ---
Author Organization [facility] Address [address] [place] [address] Phone Care Team Providers Care Aircraft Powertrain Repairer Name Role Phone Yuniel Perkins MD Primary Care Provider Love De La Rosa APRN, FILM WRITER Unavailable Lianet Lombardo APRN, FINISH SANDER Unavailable [phone]- [phone] Bryce Servin MD Unavailable Reason for Visit * Reason Comments Medication Refill Encounter Details Date Type Department Care Team (Late Contact Info) Description 04/08/2022 [facility] - [facility] [address]2 [place] [phone] Love De La Rosa, RESTAURANT MANAGER, FILM WRITER [address] [place] [address] Medication Refill Social History Tobacco Use Types [...] on file documented as of this encounter Plan of Treatment Upcoming Encounters Date Type Department Care Team (Late Contact Info) Description 02/21/2026 10:00 AM CDT Telemedicine [facility] - Pulmonology & Sleep Medicine - [place] [address] [place] [address] Lianet Lombardo APRN, FINISH SANDER [address] [place] [facility] [address] [place] [address] 07/14/2026 9:00 AM CDT [facility] [place] [address] [place] [facility] [place] [address] Love De La Rosa APRN, FILM WRITER [address] [place] [address] documented as of this encounter Visit Diagnoses Not on filedocumented in this encounter Care Teams Aircraft Powertrain Repairer Relationship Specialty Start Date End Date Yuniel Perkins MD PCP - General Family Medicine 07/13/21 Love De La Rosa APRN, FILM WRITER [address] [place] [address] Nurse Practitioner Advanced Practice Nurse 01/04/22 Lianet Lombardo APRN, FINISH SANDER [address] [address] Nurse Practitioner Advanced Practice Nurse 02/15/22 Bryce Servin MD [address] [facility] [place] [address] Consulting Physician Pulmonary Disease 02/21/23 documented as of this encounter
--- OUTSIDE RECORDS SUMMARY | 2025-07-15 16:14 | XMS_ITS | Encounter Summary ---
Author Organization [facility] Address [address] [place] [address] Phone Care Team Providers Care Concrete Batch Plant Operator Name Role Phone Yuniel Perkins MD Primary Care Provider Love De La Rosa APRN, PACKAGE WINDER Unavailable [phone]- [phone] Lianet Lombardo APRN, COORDINATOR OF EVALUATION Unavailable [phone]- [phone] Bryce Servin MD Unavailable Reason for Visit * Reason Comments Medication Refill Encounter Details Date Type Department Care Team (Late st Contact Info) Description 02/08/2022 Refill [facility] - Neurology [facility] [address]2 [place] [phone] Love De La Rosa, TOBY MAKER, PACKAGE WINDER [address] [place] [address] Medication Refill Social History Tobacco Use Types Packs/Day Years Used Date Smoking Tobacco: Never Smokeless Tobacco: Never Alcohol Use Standard Drinks/Week Comments Not Currently 0 (1 standard drink = 0.6 oz pur e alcohol) Sex and Gender Information Value Date Recorded Sex Assigned at Not on file Legal Sex Male 11:25 AM CDT Gender Identity Not on file Sexual Orientation Not on file COVID-19 Exposure Response Date Recorded In the last 10 days, have yo u been in contact with someone who was confirmed or suspected to have Coronavirus/COVID-19? No / Unsure 01/21/2022 9:41 AM CDT documented as of this encounter Plan of Treatment Upcoming Encounters Date Type Department Care Team (Late st Contact Info) Description 02/21/2026 10:00 AM CDT [facility] - [place] [address]2 [facility] [address] Lianet Lombardo APRN, COORDINATOR OF EVALUATION [address]2 [facility] [address] [place] [address] 07/14/2026 9:00 AM CDT [facility] - [place] [address]2 [facility] [address] Love De La Rosa APRN, PACKAGE WINDER [address]2 [facility] [place] [address] documented as of this encounter Visit Diagnoses Not on filedocumented in this encounter Care Teams Concrete Batch Plant Operator Relationship Specialty Start Date End Date Yuniel Perkins MD PCP - General Family Medicine 07/13/21 Love De La Rosa APRN, PACKAGE WINDER [address] [place] [address] Nurse Practitioner Advanced Practice Nurse 01/04/22 Lianet Lombardo APRN, COORDINATOR OF EVALUATION [address]2 [facility] [address] [place] [address] Nurse Practitioner Advanced Practice Nurse 02/15/22 Bryce Servin MD [address]2 [facility] [place] [address] Consulting Physician Pulmonary Disease 02/21/23 documented as of this encounter
--- OUTSIDE RECORDS SUMMARY | 2025-07-15 16:14 | XMS_ITS | Encounter Summary ---
Author Organization [facility] Address [address] [place] [address] Care Team Providers Care Pot Filler Name Role Phone Yuniel Perkins MD Primary Care Provider Encounter Details Date Type Department Care Team (Late st Contact Info) Description 05/11/2018 Lab Requisition [facility] Care DermPath Lab [address] [facility] [place] [phone] Yohannes Gibson MD [address] [place], [place] [phone] Social History Tobacco Use Types Packs/Day Years Used Date Smoking Tobacco: Never Assessed Sex and Gender Information Value Date Recorded Sex Assigned at Not on file Legal Sex Male 4:30 PM CDT Gender Identity Not on file Sexual Orientation Not on file documented as of this encounter Plan of Treatment Not on file documented as of this encounter Procedures Procedure Name Priority Date/Time Associated Diagnosis Comments DERMPATH SLIDE CONSULT Routine 05/12/2018 12:00 AM CDT documented in this encounter Results * DERMPATH SLIDE CONSULT (05/12/2018 12:00 AM CDT) Case Report Dermatopathology Report Case: [id number] Authorizing Provider: Yohannes Gibson MD Collected: 05/12/2018 12:00 AM Pathologist: Ana Maria Christine MD Received: 05/11/2018 04:32 PM Specimen: Slide(s), Mid lower back, OSC# [id number] 2:35 PM CDT DERMATOPATHOLOGY LABORATORY Final Diagnosis Specimen A. Slide(s), Mid lower back, OSC# [id number]: MALIGNANT MELANOMA,SUPERFICIA L SPREADING TYPE (C43.59) FOCALLY PRESENT AT MARGIN (see microscopic description and synoptic report) 2:35 PM T DERMATOPATHOLOGY LABORATORY at 1434 CDT Clinical History Materials received from: [employer] [address] [place] [id number] Received at the request of Dr. Yohannes Gibson, a consult will be performed on 1 slide(s) labeled [id number]. Bx Date: 05/01/2018 MM vs neoplasia. All slides returned. Any additional sections, special stains or immunohistochemical stains performed by our laboratory will be kept here on file. 2:35 PM T DERMATOPATHOLOGY LABORATORY Microscopic Description Specimen A. Slide(s), Mid lower back, OSC# [id number]: There is a proliferation melanocytes distributed in an irregular pattern singly and in nests at all levels of the epidermis. In the dermis there are a few irregular nests and single scattered melanocytes. There is a lymphohistiocytic infiltrate within the dermis. This lesion is focally present at the margin of the specimen. 2:35 PM CDT DERMATOPATHOLOGY LABORATORY Disclaimer An external and internal positive and negative controls are appropriate for the histochemical, immunohistochemical and immunofluorescence stain(s) in this case (if any), except where stated explicitly. The performance characteristics of the stain(s) cited in this report were developed and its performance characteristic determined by the Dermatopathology Laboratory at [facility]. These tests need not be, and therefore are not, approved by the [place] Food and Drug Administration. The tests are used for clinical purposes. Billing Codes Specimen Charges Stain Charges 86737 1 2:35 PM CDT DERMATOPATHOLOGY LABORATORY Synoptic Report MELANOMA OF THE SKIN: Biopsy (Melanoma Bx - A) SPECIMEN Procedure: Biopsy, shave Specimen Laterality: Midline TUMOR Tumor Site: Skin of trunk: mid lower back : Histologic Type: Superficial spreading melanoma Maximum Tumor (Breslow) Thickness in Millimeters (mm): At least: 0.5 Millimeters (mm) : Tumor is present at the surgical margin; therefore, final depth may exceed current one. Tumor Extent: Anatomic (Myron) Level: II (melanoma present in but does not fill and expand papillary dermis) Ulceration: Not identified Accessory Findings: Mitotic Rate: None identified Lymphovascular Invasion: Not identified Neurotropism: Not identified Tumor-Infiltrating Lymphocytes: Present, brisk Tumor Regression: Not identified MARGINS: Peripheral Margins: Uninvolved by invasive melanoma Status of Melanoma In Situ Involvement at Peripheral Margins: Involved by melanoma in situ Deep Margin: Uninvolved by invasive melanoma PATHOLOGIC STAGE CLASSIFICATION (pTNM, AJCC 8th Edition): Primary Tumor (pT): pT1a 8 2:35 PM CDT DERMATOPATHOLOGY LABORATORY Embedded Images 8 2:35 PM CDT DERMATOPATHOLOGY LABORATORY Pathology/Cytolog y SLIDE / Unknown 05/12/2018 05/11/2018 4:32 PM CDT Yohannes Gibson MD LAB - PATHOLOGY/CYTOLOGY ORDERAB LES Final Result DERMATOPATHOLOGY LABORATORY [facility] - Department of Dermatology [address] [place] [address] 5th Floor Lab [address] [phone] documented in this encounter Visit Diagnoses Not on filedocumented in this encounter Care Teams Pot Filler Relationship Specialty Start Date End Date Yuniel Perkins MD [address] [place] [address] PCP - General Family Medicine 06/05/18 documented as of this encounter
--- OUTSIDE RECORDS SUMMARY | 2025-07-15 16:14 | XMS_ITS | Encounter Summary ---
Author Organization [facility] Address [address] [place] [address] Care Team Providers Care Plasterer Apprentice Name Role Phone Yuniel Perkins MD Primary Care Provider Encounter Details Date Type Department Care Team (Late st Contact Info) Description 11/02/2024 Lab Requisition [facility] - DermPath Lab [address] [facility] [place] [phone] Rosy Dodd MD [address] [place] [address] [place] [address] Melanoma in situ of other part of trunk Social History Tobacco Use Types Packs/Day Years Used Date Smoking Tobacco: Never Smokeless Tobacco: Never Alcohol Use Standard Drinks/Week Comments Not Currently 0 (1 standard drink = 0.6 oz pur e alcohol) 1 MONTH Sex and Gender Information Value Date Recorded Sex Assigned at Not on file Legal Sex Male 4:30 PM CDT Gender Identity Not on file Sexual Orientation Not on file documented as of this encounter Plan of Treatment Not on file documented as of this encounter Procedures Procedure Name Priority Date/Time Associated Diagnosis Comments DERMATOPATHOLOGY Routine 11/02/2024 12:0 0 AM RUG FRAME MOUNTER 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 SKIN, left mid back: DERMAL SCAR RESIDUAL MELANOMA IN SITU NOT IDENTIFIED (L90.5) 5:09 PM [facility] DERMATOPATHOLOGY LABORATORY at 1709 RUG FRAME MOUNTER Clinical History Melanoma in situ. Check margins 5:09 PM [facility] DERMATOPATHOLOGY LABORATORY Gross Description Specimen A: Received is one formalin filled container labeled with the patient's name and designated left mid back. The specimen consists of a non-oriented ellipse of skin measuring [id number] mm. The margin is inked green. The 12 o'clock and 6 o'clock tips are submitted in cassette 1. The remainder of the ellipse is serially sectioned and submitted in cassette 2-4. Jar 0. 5:09 PM [facility] DERMATOPATHOLOGY LABORATORY Microscopic Description Specimen A. SKIN, left mid back: There are fibroblasts and collagen bundles oriented parallel to the skin surface. There are elongated blood vessels, some of which are oriented perpendicular to the skin surface. No residual melanoma in situ is identified. 5:09 PM [facility] DERMATOPATHOLOGY LABORATORY Disclaimer An external and internal positive and negative controls are appropriate for the histochemical, immunohistochemical and immunofluorescence stain(s) in this case (if any), except where stated explicitly. The performance characteristics of the stain(s) cited in this report were developed and its performance characteristic determined by the Dermatopathology Laboratory at [facility], directed by Dr. Abigail Lawrence. These tests need not be, and therefore are not, approved by the [place] Food and Drug Administration. The tests are used for clinical purposes. Billing Codes Specimen Charges Stain Charges 97706 1 5:09 PM [facility] DERMATOPATHOLOGY LABORATORY Embedded Images 5:09 PM [facility] DERMATOPATHOLOGY LABORATORY Pathology/Cytolog y TISSUE SPECIMEN FROM SKIN / Unknown 11/02/2024 11/05/2024 1:56 PM RUG FRAME MOUNTER us Rosy Dodd MD LAB - PATHOLOGY/CYTOLOGY ORDERAB LES Final Result DERMATOPATHOLOGY LABORATORY [facility] - Department of Dermatology [address] [phone] documented in this encounter Visit Diagnoses Diagnosis Melanoma in situ of other part of trunk (HCC) documented in this encounter Care Teams Plasterer Apprentice Relationship Specialty Start Date End Date Yuniel Perkins MD [address] [place] [address] PCP - General Family Medicine 06/05/18 documented as of this encounter
--- OUTSIDE RECORDS SUMMARY | 2025-07-15 16:14 | XMS_ITS | Clinical Summary ---
Author Organization [facility] Address [address] [place] [address] Care Team Providers Care Occ Ther Name Role Phone Yuniel Perkins MD Primary Care Provider Source Comments [facility],non-owned Affiliates and Associated Physician Practices is amultiple site organization consisting of ambulatory clinics and hospital sitesin [place], [place], [place] and [place]. This disclosure is being madepursuant to the Care Everywhere program and may not contain all information available regarding this patient. Last updated 18.[facility] Allergies No known active allergies Medications * Be aware that medications may not be up to date on this document. Alwaysverify current medications with the patient. ciprofloxacin (CIPRO) 500 MG tablet 8 Active clonazePAM (KLONOPIN) 0.5 MG tablet Take 1 (one) tablet by mouth once daily as needed 0 8 Active SUMAtriptan (IMITREX) 100 MG tablet 8 Active topiramate (TOPAMAX) 100 MG tablet 8 Active Esomeprazole Magnesium (NEXIUM PO) Take 40 mg by mouth Active Famotidine (PEPCID AC PO) Take 1 tablet by mouth Active Ibuprofen 100 MG Take 100 mg by mouth 3 times daily as needed Active atorvastatin (Lipitor) 10 MG tablet Take 1 (one) tablet by mouth at bedtime Active linezolid (ZYVOX) 600 MG tablet 1 Active fenofibrate (Fenoglide) 120 MG Take 1 (one) tablet by mouth once daily 2 Active Emgality 120 MG/ML auto-injector pen INJECT 1 PEN SUBCUTANEOUSLY ONCE EVERY MONTH 2 Active verapamil SR 24hr (Verelan) 120 MG capsule Take 1 (one) capsule by mouth once daily 2 Active Active Problems Problem Noted Date Diagnosed Date Melanoma of back 05/22/2018 Cancer Staging:Clinical:Stage IA(cT1a, cN0, cM0) - Unsigned Pathologic stage from 05/21/2019:Stage Unknown(pT0, pNX, cM0) - Signed by Slim Morales MD on 05/21/2019 Family History Medical History Relation Name Comments Hypertension Father Brain Tumor Mother Cancer - Other Mother Hypertension Mother Relation Name Status Comments Father Alive Mother Social History Tobacco Use Types Packs/Day Years Used Date Smoking Tobacco: Never Smokeless Tobacco: Never Tobacco Cessation:Counseling Given: No Alcohol Use Standard Drinks/Week Comments Not Currently 0 (1 standard drink = 0.6 oz pur e alcohol) 1 MONTH Sex and Gender Information Value Date Recorded Sex Assigned at Not on file Legal Sex Male 4:30 PM CDT Gender Identity Not on file Sexual Orientation Not on file Last Filed Vital Signs Vital Sign Reading Time Taken Comments Blood Pressure 131/98 07/19/2023 9:35 AM CDT Pulse 91 07/19/2023 9:35 AM CDT Temperature 37.2 C (98.9 F) 07/19/2023 7:10 AM CDT Respiratory Rate 17 07/19/2023 9:35 AM CDT Oxygen Saturation 96% 07/19/2023 9:35 AM CDT Inhaled Oxygen Concentration - - Weight 104.3 kg (230 lb) 07/19/2023 7:08 AM CDT Height 182.9 cm (6') 07/19/2023 7:08 AM CDT Body Mass Index 31.19 07/19/2023 7:08 AM CDT Plan of Treatment Health Maintenance Due Date Last Done Comments COLOGUARD (AGES 45-75) - COL ON CA SCREENING 1974 CT COLONOGRAPHY - COLON CA SCREENING 1974 FIT - COLON CA SCREENING 1974 FLEX SIG - COLON CA SCREENING 1974 HIV SCREENING 1989 HEPATITIS C SCREENING 04/15/1992 DTAP/TDAP/TD VACCINES (1 - Tdap) 1993 HEPATITIS B VACCINE (1 of 3 - 19+ 3-dose series) 1993 PNEUMOCOCCAL VACCINE 50+ (1 of 1 - PCV) 2024 ZOSTER VACCINE (1 of 2) 2024 DEPRESSION SCREENING 10/17/2024 COVID-19 VACCINE (1 - 2023-2 5 season) 2025 INFLUENZA VACCINE (#1) 2025 COLON MONITORING 07/19/2033 07/19/2023, 07/19/2023, 07/19/2023 COLONOSCOPY - COLON CA SCREENING 07/19/2033 07/19/2023, 07/19/2023, 07/19/2023 Colorectal Cancer Screening 07/19/2033 HIB VACCINE Aged Out No longer eligi ble based on patient's age to complete this topic HPV VACCINE Aged Out No longer eligi ble based on patient's age to complete this topic MENINGOCOCCAL (Group B) VACCINE SHARED DECISION-MAKING Aged Out No longer eligible based on patient's age to complete this topic MENINGOCOCCAL GROUPS A/C/Y/W VACCINE Aged Out No longer eligible b ased on patient's age to complete this topic Procedures Procedure Name Priority Date/Time Associated Diagnosis Comments ENDOSCOPY, COLON, SCREENING Routine 07/19/2023 8:29 AM CDT Screening for colon cancer from Last 3 Months or Most Recently Relevant to Health Maintenance Results * ENDOSCOPY, COLON, SCREENING (07/19/2023 8:29 AM CDT) Report Endoscopy POC _ Patient Name: Aiyana Allen Procedure Date: 07/19/2023 8:29 AM Date of : 1975 Admit Type: Outpatient Age: 48 Gender: Male Ethnicity: Not or Race: White Attending MD: Dax Rausch MD, [id number] _ Procedure: Colonoscopy Indications: Screening for colorectal malignant neoplasm Providers: Dax Rausch MD (Doctor) Patient Profile: 48M presents for screening colonoscopy avg risk. no prior exams Referring MD: Dax Rausch MD (Referring MD) Medicines: Monitored Anesthesia Care Complications: No immediate complications. _ Estimated Blood Loss: Estimated blood loss was minimal. Procedure: Pre-Anesthesia Assessment: - Prior to the procedure, a History and Physical was performed, and patient medications and allergies were reviewed. The patient's tolerance of previous anesthesia was also reviewed. The risks and benefits of the procedure and the sedation options and risks were discussed with the patient. All questions were answered, and informed consent was obtained. Prior Anticoagulants: The patient has taken no anticoagulant or antiplatelet agents. ASA Grade Assessment: II - A patient with mild systemic disease. After reviewing the risks and benefits, the patient was deemed in satisfactory condition to undergo the procedure. After I obtained informed consent, the scope was passed under direct vision. Throughout the procedure, the patient's blood pressure, pulse, and oxygen saturations were monitored continuously. The Colonoscope was introduced through the anus and advanced to the cecum, identified by appendiceal orifice and ileocecal valve. The colonoscopy was performed without difficulty. The patient tolerated the procedure well. The quality of the bowel preparation was adequate to identify polyps greater than 5 mm in size. The ileocecal valve, appendiceal orifice, and rectum were photographed. Impression: - One 8 mm polyp in the descending colon, removed with a cold snare. Resected and retrieved. - Two 4 to 6 mm polyps in the sigmoid colon, removed with a cold biopsy forceps. Resected and retrieved. - Diverticulosis in the sigmoid colon. - The examination was otherwise normal on direct and retroflexion views. Findings: The perianal and digital rectal examinations were normal. An 8 mm polyp was found in the descending colon. The polyp was sessile. The polyp was removed with a cold snare. Resection and retrieval were complete. Two sessile polyps were found in the sigmoid colon. The polyps were 4 to 6 mm in size. These polyps were removed with a cold biopsy forceps. Resection and retrieval were complete. Scattered small-mouthed diverticula were found in the sigmoid colon. The exam was otherwise without abnormality on direct and retroflexion views. _ Recommendation: - Patient has a contact number available for emergencies. The signs and symptoms of potential delayed complications were discussed with the patient. Return to normal activities tomorrow. Written discharge instructions were provided to the patient. - High fiber diet. - Repeat colonoscopy in 3 - 5 years for surveillance based on pathology results. Procedure Code(s): --- Professional --- 93505, Colonoscopy, flexible; with removal of tumor(s), polyp(s), or other lesion(s) by snare technique 56442, 59, Colonoscopy, flexible; with biopsy, single or multiple --- Technical --- 75888, Colonoscopy, flexible; with removal of tumor(s), polyp(s), or other lesion(s) by snare technique 45790, 59, Colonoscopy, flexible; with biopsy, single or multiple Diagnosis Code(s): --- Professional --- Z12.11, Encounter for screening for malignant neoplasm of colon D12.4, Benign neoplasm of descending colon D12.5, Benign neoplasm of sigmoid colon K57.30, Diverticulosis of large intestine without perforation or abscess without bleeding --- Technical --- Z12.11, Encounter for screening for malignant neoplasm of colon D12.4, Benign neoplasm of descending colon D12.5, Benign neoplasm of sigmoid colon K57.30, Diverticulosis of large intestine without perforation or abscess without bleeding CPT copyright 2020 [employer]. All rights reserved. The codes documented in this report are preliminary and upon instrumentation technologist review may be revised to meet current compliance requirements. Dax Rausch MD 07/19/2023 9:15:38 AM This report has been signed electronically. Number of Addenda: 0 Note Initiated On: 07/19/2023 8:29 AM [facility] ENDOSCOPY 07/19/2023 8:29 AM CDT Narrative Procedure Note Dax Rausch MD - 07/19/2023 9:16 AM CDT Colonoscopy 3 polyps, 1 adenomatous resected diverticulosis Rpt 3-5 yrs pending path D/w aiyana us Dax Rausch MD GI PROCEDURE ORDERABLES Edited R esult - Final [facility] ENDOSCOPY from Last 3 Months or Most Recently Relevant to Health Maintenance Insurance [facility] [place] [address] [place] [id number] Advance Directives * Full Code (Latest Code Status on File) Date Activated Date Inactivated Comments 06/06/2018 8:45 AM 06/06/2018 12:26 PM Care Teams Occ Ther Relationship Specialty Start Date End Date Yuniel Perkins MD [address] [place] [address] PCP - General Family Medicine 06/05/18
--- OUTSIDE RECORDS SUMMARY | 2025-07-15 16:14 | XMS_ITS | Encounter Summary ---
Author Organization [facility] Address [address] [place] [address] Phone Care Team Providers Care Supervisor Pile Driving Name Role Phone Yuniel Perkins MD Primary Care Provider Love De La Rosa APRN, TRUCK TERMINAL MANAGER Unavailable Lianet Lombardo APRN, LANGUAGE AND LITERATURE DIVISION CHAIR Unavailable [phone] Bryce Servin MD Unavailable Reason for Visit * Reason Comments Medication Refill Encounter Details Date Type Department Care Team (Late Contact Info) Description 10/04/2022 [facility] [address] [place] [id number] Love De La Rosa, MORTICIAN SUPPLIES SALES REPRESENTATIVE, TRUCK TERMINAL MANAGER [address] [place] [address] Medication Refill Social History Tobacco Use Types [...] Info) Description 02/21/2026 10:[address] [facility] - Pulmonology & Sleep Medicine - [place] [address] [facility] [place] [address] Lianet Lombardo APRN, LANGUAGE AND LITERATURE DIVISION CHAIR [address] [facility] [address] [place] [address] 07/14/2026 9:00 AM CDT [facility] - [place] [address] [place] [address] Love De La Rosa APRN, TRUCK TERMINAL MANAGER [address] [facility] [place] [address] documented as of this encounter Visit Diagnoses Not on filedocumented in this encounter Care Teams Supervisor Pile Driving Relationship Specialty Start Date End Date Yuniel Perkins MD PCP - General Family Medicine 07/13/21 Love De La Rosa APRN, TRUCK TERMINAL MANAGER [address] [place] [address] Nurse Practitioner Advanced Practice Nurse 01/04/22 Lianet Lombardo APRN, LANGUAGE AND LITERATURE DIVISION CHAIR [address] [address] Nurse Practitioner Advanced Practice Nurse 02/15/22 Bryce Servin MD [address] [facility] [place] [address] Consulting Physician Pulmonary Disease 02/21/23 documented as of this encounter
--- OUTSIDE RECORDS SUMMARY | 2025-07-15 16:14 | XMS_ITS | Clinical Summary ---
Author Organization [facility] Address [address] [place] [address] Phone Care Team Providers Care Rn Resource Nurse Name Role Phone Yuniel Perkins MD Primary Care Provider Love De La Rosa APRN, CNC LATHE PROGRAMMER Unavailable + [phone] Lianet Lombardo APRN, GRANITE POLISHER Unavailable Bryce Servin MD Unavailable Allergies No known active allergies Medications atorvastatin (LIPITOR) 10 MG Tablet Take 10 mg by mouth. Active esomeprazole (NexIUM) 20 MG CAPSULE DELAYED RELEASE Take 40 mg by mouth. Active verapamil (CALAN SR; ISOPTIN SR) 180 MG Tablet Controlled ReleaseIndicati ons:Hypertensio n,Migraine Take 180 mg by mouth daily. Indications: High Blood Pressure Disorder, Migraine Headache Active Emgality 120 MG/ML Solution Auto-injectorIn dications:Chron ic migraine w/o aura w/o status migrainosus, not intractable INJECT CONTENTS OF 1 PEN SUBCUTANEOUSLY ONCE EVERY MONTH 1 mL 2 06/04/20 25 Active topiramate (Topamax) 100 MG TabletIndicatio ns:Chronic migraine w/o aura w/o status migrainosus, not intractable Take 1 Tablet by mouth 2 times daily. 120 Tablet 07/01/20 25 Active SUMAtriptan (IMITREX) 100 MG TabletIndicatio ns:Chronic migraine w/o aura w/o status migrainosus, not intractable Take 1 Tablet by mouth once as needed for Migraine or Headaches. May take 2nd tablet 2 hours later if needed. 27 Tablet 1 07/01/20 25 Active topiramate (TOPAMAX) 100 MG Tablet Take 50 mg by mouth daily. Taking once a day 05/25/20 025 Discontin ued(Dose adjustmen t) SUMAtriptan (IMITREX) 100 MG Tablet 08/19/20 025 Discontin ued(Reord er) Active Problems Problem Noted Date Diagnosed Date Seasonal allergies 08/19/2023 Class 1 obesity due to exces s calories without serious comorbidity with body mass index (BMI) of 31.0 to 31.9 in adult 02/21/2023 Essential (primary) hypertension 08/24/2022 Dyslipidemia 08/24/2022 MARY (obstructive sleep apnea) 02/15/2022 Resolved Problems Problem Noted Date Diagnosed Date Resolved Date Loud snoring 02/15/2022 02/21/2023 Encounters Date Type Department Care Team Description 07/01/2025 9:30 AM CDT Telemedicine [facility] Neurology [facility] [address] [place] [phone] Love De La Rosa APRN, CNC LATHE PROGRAMMER Chronic migraine w/o aura w/o status migrainosus, not intractable (Primary Dx) Discharge Disposition: Discharged to home or Selfcare 07/01/2025 Telephone [facility] Neurology [facility] [address] [place] [phone] Love De La Rosa APRN, CNC LATHE PROGRAMMER 06/30/2025 Travel 06/04/2025 Refill [facility] Neurology [facility] [address] [place] [phone] Francis De La Rosa MD Medication Refill 05/08/2025 Refill [facility] Neurology [facility] [address] [place] [address] Love De La Rosa APRN, CNC LATHE PROGRAMMER Medication Refill from Last 3 Months Family History Medical History Relation Name Comments Migraines Father Diabetes Maternal Grandmother Migraines Mother Hypertension Paternal Grandmother Relation Name Status Comments Father Alive Maternal Grandmother Mother Paternal Grandmother Social History Tobacco Use Types Packs/Day Years Used Date Smoking Tobacco: Never Smokeless Tobacco: Never Tobacco Cessation:Counseling Given: Not Answered Alcohol Use Standard Drinks/Week Comments Not Currently 0 (1 standard drink = 0.6 oz pur e alcohol) Sex and Gender Information Value Date Recorded Sex Assigned at Not on file Legal Sex Male 11:25 AM CDT Gender Identity Not on file Sexual Orientation Not on file Last Filed Vital Signs Vital Sign Reading Time Taken Comments Blood Pressure 126/82 02/21/2023 11:03 AM CDT Pulse 91 02/21/2023 11:03 AM CDT Temperature 36.4 C (97.6 F) 02/21/2023 11:03 AM CDT Respiratory Rate 16 02/21/2023 11:0 3 AM CDT Oxygen Saturation 98% 02/21/2023 11: 03 AM CDT Inhaled Oxygen Concentration - - Weight 105.8 kg (233 lb 4.8 oz) 023 11:03 AM CDT Height 182.9 cm (6') 02/21/2023 11:03 AM CDT Body Mass Index 31.64 02/21/2023 11:03 AM CDT Plan of Treatment Upcoming Encounters Date Type Department Care Team (Late st Contact Info) Description 02/21/2026 10:00 AM CDT [facility] - Pulmonology & Sleep Medicine - [place] [address] [place] [address] Lianet Lombardo, FERRY CAPTAIN, GRANITE POLISHER [address] [address] 07/14/2026 9:00 AM CDT [facility] - [place] [address] [place] [address] Love De La Rosa, FERRY CAPTAIN, CNC LATHE PROGRAMMER [address] [place] [address] Health Maintenance Due Date Last Done Comments Hepatitis C Virus (HCV) Screening 1975 TdaP Immunization 1974 Hepatitis B Immunization (1 of 3 - 19+ 3-dose series) 1993 Cologuard 2019 Immunochemical Fecal Occult Blood 2019 Pneumococcal Immunization (5 0+ years) (1 of 1 - PCV) 2024 Zoster Immunization (1 of 2) 2024 Influenza Immunization (#1) 2025 SARS-COV-2 Immunization ( - season) 2025 09/23/2021, 02/18/2021, 01/28/2021 Colonoscopy 07/19/2033 07/19/2023 Colorectal Cancer Screening 07/19/2033 Respiratory Syncytial Virus (RSV) Immunization (Adult) (1 - 1-dose 75+ series) 2049 DTaP/Tdap/Td Immunization Discontinued 2019, 03/27/2020 Human Papillomavirus (HPV) Immunization Aged Out No longer eligible based on patient's age to complete this topic Meningococcal Immunization (ACWY) Aged Out No longer eligible based on patient's age to complete this topic Rotavirus Immunization Aged Out No lo nger eligible based on patient's age to complete this topic Insurance [address] [place], [place] [id number] [place] [address] Care Teams Rn Resource Nurse Relationship Specialty Start Date End Date Yuniel Perkins MD PCP - General Family Medicine 9/27/21 Love De La Rosa APRN, CNC LATHE PROGRAMMER [address] [place] [address] Nurse Practitioner Advanced Practice Nurse 01/04/22 Lianet Lombardo APRN, GRANITE POLISHER [address] [address] Nurse Practitioner Advanced Practice Nurse 02/15/22 Bryce Servin MD [address] [place] [address] Consulting Physician Pulmonary Disease 02/21/23
--- OUTSIDE RECORDS SUMMARY | 2025-07-15 16:14 | XMS_ITS | Encounter Summary ---
Author Organization [facility] Address [address] [place] [address] Phone Care Team Providers Care Adjunct Political Science Instructor Name Role Phone Yuniel Perkins MD Primary Care Provider Love De La Rosa APRN, PROFESSIONAL NURSING TUTOR Unavailable [phone] Lianet Lombardo APRN, COMMUNICATIONS MAINTAINER Unavailable [phone] Bryce Servin MD Unavailable Reason for Visit * Reason Comments Medication Refill Encounter Details Date Type Department Care Team (Late st Contact Info) Description 05/20/2023 Refill [facility] - Neurology [facility] [address] [place] [phone] Love De La Rosa, REAGENT TENDER HELPER, PROFESSIONAL NURSING TUTOR [address] [place] [address] Medication Refill Social History Tobacco Use Types [...] Telephone Encounter - Libertad Degroot RN - 05/20/2023 11:36 AM CDT Medication failed the protocol, provider to review and approve the medication order if appropriate. Requested Prescriptions Pending Prescriptions Disp Refills verapamil CR (VERELAN) 120 MG CAPSULE SR 24 HR [Pharmacy Med Name: Verapamil HCl ER 120 MG Oral Capsule Extended Release 24 Hour] 90 Capsule 0 Sig: Take 1 capsule by mouth once daily Calcium-Channel Blockers Protocol Passed - 05/20/2023 10:06 AM Passed - BP on record in the past year Clinician-entered: BP Readings from Last 3 Encounters: 02/21/23 126/82 01/10/23 122/68 10/12/22 124/88 Patient-entered: No data recorded Passed - Visit with relevant provider in past 12 months or upcoming 90 days Recent Visits Date Type Provider Dept 01/10/23 Office Visit Love De La Rosa APRN, PROFESSIONAL NURSING TUTOR [facility] 10/12/22 Office Visit Love De La Rosa APRN, PROFESSIONAL NURSING TUTOR [facility] Neurology [facility] Showing recent visits within past 365 days and meeting all other requirements Future Appointments Date Type Provider Dept 07/01/23 Appointment Love De La Rosa APRN, PROFESSIONAL NURSING TUTOR [facility] Showing future appointments within next 90 days and meeting all other requirements documented in this encounter Plan of Treatment Upcoming Encounters Date Type Department Care Team (Late st Contact Info) Description 02/21/2026 10:00 AM CDT Telemedicine [facility] - Pulmonology & Sleep Medicine - [place] [address] [place] [address] Lianet Lombardo APRN, COMMUNICATIONS MAINTAINER [address] [address] 07/14/2026 9:00 AM CDT Telemedicine [facility] - Neurology - [place] [address] [place] [address] Love De La Rosa APRN, PROFESSIONAL NURSING TUTOR [address] [place] [address] documented as of this encounter Visit Diagnoses Not on filedocumented in this encounter Care Teams Adjunct Political Science Instructor Relationship Specialty Start Date End Date Yuniel Perkins MD PCP - General Family Medicine 07/13/21 Love De La Rosa APRN, PROFESSIONAL NURSING TUTOR [address] [place] [address] Nurse Practitioner Advanced Practice Nurse 01/04/22 Lianet Lombardo APRN, COMMUNICATIONS MAINTAINER [address] [address] Nurse Practitioner Advanced Practice Nurse 02/15/22 Bryce Servin MD [address] [place] [address] Consulting Physician Pulmonary Disease 02/21/23 documented as of this encounter
[2025-07-15 16:56] LABS: Triglycerides 245 mg/dL (<150)
[2025-07-15] MEDS: HYDROmorphone HCL INJ (*CRX) 1 MG/ML SYR 0.5 MG IV PUSH (17:45)
--- NOTE | 2025-07-15 18:20 | PM.IMHP ---
H&P: HPI History of Present Illness Date/Time: 07/15/25 18:20 Chief Complaint: Abdominal pain Narrative: 50-year-old male with past medical history of hypertension, hyperlipidemia, fat intolerance presenting with acute abdominal pain. According to him he usually does not tolerate fatty food. Yesterday he had fried chicken wings. This morning he had normal breakfast with eggs, followed by a lunch which was ham turkey sandwich. 30 minutes later he started having severe abdominal pain, radiating to back, followed by nausea but no vomiting. No diarrhea, no fever. Patient denies any history of gallstones. Patient does not drink alcohol on a daily basis. No prior history of pancreatitis. Blood work was remarkable for mild leukocytosis along with elevated lipase level. CT abdomen pelvis shows thickening of he of duodenum and jejunum with small amount of surrounding fat stranding, duodenitis/ileitis as possible. Review of Systems Review of Systems: All systems reviewed & are unremarkable except as noted in HPI and below PMFSH Past Medical History Medical History Seasonal allergies Chronic kidney disease, stage 3a Vitamin D deficiency Sleep apnea in adult Essential (primary) hypertension Family history of prostate cancer in father Dyslipidemia Anxiety Bee sting allergy History of melanoma Social anxiety disorder Intractable migraine without aura and without status migrainosus GERD without esophagitis Surgical History Surgical History History of melanoma excision x2 right nshoulder - 2022 and right lower back - 2018 History of vasectomy (~2018) Family History Family History Father Malignant neoplasm of prostate Other Family history of hearing loss Family history of malignant neoplasm of brain Skin cancer Social History Social History Smoking status: Never smoker Second hand tobacco smoke exposure: No Alcohol intake: current Alcohol use details: consumes 4 beers monthly Substance use: never Substance use type: does not use Lack of Transportation: No Lack of Food: Never True Current Housing: I Have Housing Concerned About Future Housing: No Difficulty Paying Gas/Electric Bills: No Difficulty Paying for Meds: No Currently Unemployed: No Education: Bachelor's Degree Difficulty w/ Childcare or Family Care: No Living arrangements: with family Occupation/Education: occupation 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 Gender identity (if verbalized by the patient): Male Agree to blood products: Yes Meds Home Medications and Allergies Home Medications ?Medication ?Instructions ?Recorded ?Confirmed ?Type galcanezumab-gnlm 120 mg/mL 120 mg subcut MONTHLY 04/13/22 06/12/25 History subcutaneous pen injector (Emgality Pen) cholecalciferol (vitamin D3) 50 50 mcg PO DAILY 06/13/24 06/12/25 History mcg (2,000 unit) tablet esomeprazole magnesium 20 mg 20 mg PO DAILY 06/13/24 06/12/25 History tablet,delayed release (Nexium 24HR) fenofibrate 160 mg tablet 160 mg PO DAILY #90 tabs 04/01/25 06/12/25 Rx sumatriptan succinate 100 mg 100 mg PO .COMPLEX PRN migraine 05/08/25 06/12/25 History tablet (Imitrex) headache atorvastatin 10 mg tablet 10 mg PO QHS 06/12/25 06/12/25 History clonazepam 0.5 mg tablet (Klonopin) 0.5 mg PO DAILY PRN anxiety #30 06/12/25 06/12/25 Rx tabs topiramate 100 mg tablet 100 mg PO DAILY #90 tabs 07/10/25 Rx verapamil 180 mg tablet,extended 180 mg PO DAILY #100 tabs 07/15/25 Rx release Allergies Allergy/AdvReac Type Severity Reaction Status Date / Time No Known Allergies Allergy Verified 07/15/25 15:37 Vital Signs Vital Signs - 24 hr 07/15/25 15:28 07/15/25 17:12 07/15/25 18:09 Temperature 97.6 F Pulse Rate 103 H 79 79 Respiratory Rate 13 15 16 Blood Pressure 153/102 H 146/97 H 121/70 Pulse Oximetry 100 95 96 Oxygen Delivery Room Air 07/15/25 18:11 Temperature 97.8 F Pulse Rate Respiratory Rate Blood Pressure Pulse Oximetry Oxygen Delivery Exam Const: General: comfortable and no acute distress HENMT: Mouth: Yes moist mucous membranes Eyes: Sclera: sclerae normal Pupils: Equal, round and reactive pupils present Neck: Neck: supple Resp: Effort & Inspection: normal respiratory effort Auscultation: clear to auscultation bilaterally Cardio: Rate: regular rate Rhythm: regular rhythm GI: GI Palp: Yes Soft to palpation and Yes Tenderness to palpation present (GI) Auscultation: normal bowel sounds Skin: General skin exam: normal color Neuro: Speech: normal speech Extrem: General: normal to inspection Psych: Mental Status: mental status grossly normal H&P: Results Labs Labs: Short CBC 07/15/25 Range/Units 15:36 WBC 13.0 H (4.5-10.0) K/mm3 Hgb 15.2 (14.0-18.0) g/dL Hct 45.9 (42.0-52.0) % Plt Count 353 (150-375) k/mm3 BMP 07/15/25 15:36 Sodium 144 Potassium 3.8 Chloride 108 H Carbon Dioxide 22 BUN 25 H Creatinine 1.80 H Glucose 100 Calcium 9.1 Liver Function 07/15/25 Range/Units 15:36 Total Bilirubin 0.4 (0.2-1.3) mg/dL AST 31 (17-59) U/L ALT 28 (6-50) U/L Alkaline Phosphatase 52 (38-126) U/L Albumin 5.0 (3.5-5.1) g/dL Urine 07/15/25 Range/Units 15:36 Urine Color Yellow (Yellow) Urine Appearance Clear (Clear) Urine pH 5.5 (5.0-9.0) Ur Specific [place] 1.028 (1.001-1.035) Urine Protein Negative (Negative) mg/dL Urine Glucose (UA) Negative (Negative) mg/dL Assessment and Plan Assessment and plan (1) Essential (primary) hypertension: Code(s): I10 - Essential (primary) hypertension Status: Acute (2) Dyslipidemia: Code(s): E78.5 - Hyperlipidemia, unspecified Status: Acute (3) Duodenitis: Code(s): K29.80 - Duodenitis without bleeding Status: Acute (4) Pancreatitis: Qualifiers: Acute pancreatitis complication: no infection or necrosis Chronicity: acute Pancreatitis type: unspecified pancreatitis type Qualified Code(s): K85.90 - Acute pancreatitis without necrosis or infection, unspecified Code(s): K85.90 - Acute pancreatitis without necrosis or infection, unspecified Status: Acute Plan 50-year-old male with past medical history of hypertension, hyperlipidemia presenting with abdominal pain, initial workup suggestive of acute pancreatitis with unclear etiology along with duodenitis/ileitis. 1. Acute abdominal pain: Secondary to acute pancreatitis+ acute duodenitis/ileitis Admit to General Medicine NPO Pain control IV fluids Zofran p.r.n. PPI IV b.i.d. Will add ceftriaxone and Flagyl for possible duodenitis GI has been consulted Monitor leukocytosis 2. Holding all oral medications if not necessary 3. Code status: Full 4. DVT prophylaxis: Heparin subQ 5. Disposition: Admit to General Medicine Quality VTE Prophylaxis VTE prophylaxis: pharmacologic ordered Hospitalist [facility] Advance Care Plan I have confirmed that the patient's Advanced Care Plan is present, code status is documented, or surrogate decision maker is listed in patient medical record.: Yes Medication Reconciliation I have utilized all available resources to obtain, update and review the patients current medications (includes all prescriptions, OTC, herbals, cannabis, and nutritional supplements).: Yes
[2025-07-15] MEDS: SODIUM CHLORIDE 0.9% IV 1,000 ML 125 ML IV CONT (20:34)
[2025-07-15] MEDS: metroNIDAZOLE 500 MG/ISO 100ML 500 MG/100 ML BAG 100 MG IVPB (20:35)
[2025-07-15] MEDS: cefTRIAXone 1 GM in SODIUM CHLORIDE 0.9% IV 50 ML 100 ML IVPB (20:35)
[2025-07-15] MEDS: MORPHINE SULFATE (*CRX) 4 MG/ML INJ 1 MG IV PUSH (20:41)
[2025-07-15] MEDS: PANTOPRAZOLE SODIUM IV 40 MG VIAL IV PUSH (20:42)
[2025-07-16] MEDS: MORPHINE SULFATE (*CRX) 4 MG/ML INJ 1 MG IV PUSH ×4 (03:40→21:48)
[2025-07-16 03:42] VITALS: PULSE 94; O2SAT 90
[2025-07-16] MEDS: SODIUM CHLORIDE 0.9% IV 1,000 ML 125 ML IV CONT ×2 (03:42→17:17)
[2025-07-16 05:43] VITALS: BP 147/87; PULSE 85; RESP 18; TEMP 36.6; O2SAT 96
[2025-07-16 06:00] LABS: Hematocrit 39.9 % (42.0-52.0); Hemoglobin 13.3 g/dL (14.0-18.0); Immature Granulocyte Percent A 0.4 % (0-0.5); Lymphocytes Absolute Auto 1.27 K/mm3 (0.9-3.2); Mean Corpuscular HGB Conc 33.3 g/dl (32-36); Mean Corpuscular Hemoglobin 28.1 pg (26-34); Mean Corpuscular Volume 84.2 fl (80-100); Nucleated Red Blood Cells Absolute Auto 0.000 K/mm3 (0.0-0.012); Nucleated Red Blood Cells Perc 0.0 % (0.0-0.2); Platelet Count Result 264 k/mm3 (150-375); Red Blood Count 4.74 M/mm3 (4.6-6.20); White Blood Count 7.9 K/mm3 (4.5-10.0)
[2025-07-16] MEDS: metroNIDAZOLE 500 MG/ISO 100ML 500 MG/100 ML BAG 100 MG IVPB ×3 (06:26→21:50)
[2025-07-16 06:37] LABS: Alanine Aminotransferase 23 U/L (6-50); Albumin Level 4.0 g/dL (3.5-5.1); Alkaline Phosphatase 33 U/L (38-126); Anion Gap 9 mmol/L (4-12); Aspartate Amino Transferase 24 U/L (17-59); Bilirubin,Total 0.6 mg/dL (0.2-1.3); Blood Urea Nitrogen 17 mg/dL (9-20); Calcium 8.4 mg/dL (8.4-10.2); Carbon Dioxide 20 mmol/L (22-30); Chloride 109 mmol/L (98-107); Estimated CRCL calculation 67 ml/min; Estimated Glomerular Filt Rate 50; Glucose 95 mg/dL (65-110); Magnesium 2.2 mg/dL (1.6-2.3); Potassium 3.6 mmol/L (3.4-5.0); Sodium 138 mmol/L (137-145); Total Protein 6.5 g/dL (6.3-8.2)
--- NOTE | 2025-07-16 07:54 | P.CONGI_ITS ---
Assessment and Plan Assessment and plan (1) Duodenitis: Code(s): K29.80 - Duodenitis without bleeding <Yvette Batista FIRE EXTINGUISHER REPAIRER INSPECTOR - Last Filed: 07/16/25 10:08> Status: Acute <Yvette Batista FIRE EXTINGUISHER REPAIRER INSPECTOR - Last Filed: 07/16/25 10:08> (2) Elevated lipase: Code(s): R74.8 - Abnormal levels of other serum enzymes <Yvette Batista FIRE EXTINGUISHER REPAIRER INSPECTOR - Last Filed: 07/16/25 10:08> Status: Acute <Yvette Batista FIRE EXTINGUISHER REPAIRER INSPECTOR - Last Filed: 07/16/25 10:08> (3) Pancreatitis: Qualifiers: Acute pancreatitis complication: no infection or necrosis C hronicity: acute Pancreatitis type: unspecified pancreatitis type Qualified Code(s): K85.90 - Acute pancreatitis without necrosis or infection, unspecified <Yvette Batista FIRE EXTINGUISHER REPAIRER INSPECTOR - Last Filed: 07/16/25 10:08> Code(s): K85.90 - Acute pancreatitis without necrosis or infection, unspecified <Yvette Batista, FIRE EXTINGUISHER REPAIRER INSPECTOR - Last Filed: 07/16/25 10:08> Status: Acute <Yvette Batista, FIRE EXTINGUISHER REPAIRER INSPECTOR - Last Filed: 07/16/25 10:08> (4) Abdominal pain: Qualifiers: Abdominal location: upper abdomen, unspecified Qualified Code(s): R10.10 - Upper abdominal pain, unspecified <Yvette Batista FIRE EXTINGUISHER REPAIRER INSPECTOR - Last Filed: 07/16/25 10:08> Code(s): R10.9 - Unspecified abdominal pain <Yvette Batista, FIRE EXTINGUISHER REPAIRER INSPECTOR - Last Filed: 07/16/25 10:08> Status: Acute <Yvette Batista, FIRE EXTINGUISHER REPAIRER INSPECTOR - Last Filed: 07/16/25 10:08> (5) Liver hemangioma: Code(s): D18.03 - Hemangioma of intra-abdominal structures <Yvette Salas. Lester FIRE EXTINGUISHER REPAIRER INSPECTOR - Last Filed: 07/16/25 10:08> Status: Acute <Yvette Batista, FIRE EXTINGUISHER REPAIRER INSPECTOR - Last Filed: 07/16/25 10:08> (6) Liver cyst: Code(s): K76.89 - Other specified diseases of liver <Yvette Batista APRN - Last Filed: 07/16/25 10:08> Status: Acute <Yvette Batista APRN - Last Filed: 07/16/25 10:08> Assessment and Plan: 1. Duodenitis/elevated lipase/pancreatitis?/epigastric and RUQ abdominal pain/nausea: Patient has never had an EGD. Denies any history of gallstones or pancreatitis. Patient does not drink alcohol on a daily basis. On admission lipase at 2702 and LFT's were normal. CT showed thickening of the he of the duodenum and jejunum with small amount of surrounding fat stranding. Duodenitis/ileitis is possible and a small hiatal hernia. Patient states that he has a intolerance to fatty foods over the past 2 months as they normally causes GI upset and diarrhea that typically last for around 24 hours before resolving without intervention. Yesterday the pain he was experiencing was severe and located in his epigastric and right upper quadrant that would radiate to his back. His pain was positional as he stated if he laid on his left side the pain would moved to his right upper quadrant and pain would worsen if he was in a supine position. He has a longstanding history of ibuprofen use for migraines and had been taking 400 mg daily a few times weekly but recently has been able to decrease his NSAID use but not discontinue it. DDX: Peptic ulcer disease versus duodenitis versus early pancreatitis versus gallbladder dysfunction. * Given that pancreas is normal on CT symptoms likely related to early pancreatitis or lipase elevation secondary to duodenitis * Abdominal ultrasound completed today but results still pending * Patient on Rocephin and Flagyl, continue * Continue PPI BID * Will check stool for H-Pylori and if possible will start treatment * trial clear liquid diet if tolerated * primary care team to continue supportive care with IV fluids, antiemetics and pain management * If patient does not improve with above interventions we will consider inpatient endoscopic evaluation otherwise if he has improvement we can discuss an outpatient EGD to follow up in document mucosal healing * May consider outpatient HIDA scan for possible underlying cause of his intolerance to fatty foods and chronic intermittent pain 2. Liver hemangioma and cyst: Imaging dating back to September 2017 showing findings consistent with hemangiomas, largest measuring 5.4 cm in the right hepatic lobe. CT this admission showed stable probable hemangioma in the posterior segment of the right lobe of the liver and a 1.5 cm fluid attenuation lesion in the left lobe of the liver which is favored to represent a liver cyst. LFT's normal. No worrisome change in size of lesion. * Given that liver lesions have remained stable for 8 years, no further workup required at this time Thank you very much for allowing me to share in the care of this very nice patient. This report may have been done utilizing a voice recognition system. Attempts have been made to correct errors. However, there may be uncorrected grammatical, spelling, and recognition errors present. <Yvette Batista APRN - Last Filed: 07/16/25 10:08> GI Consult Note Consult date/time: 07/16/25 07:54 <Yvette Batista APRN - Last Filed: 07/16/25 10:08> Reason for consult: Pancreatitis <Yvette Batista APRN - Last Filed: 07/16/25 10:08> HPI: Magnus Allen is a 50 year old male HTN, CKD stage 3, sleep apnea, anxiety, migraines, GERD and HLD. He presented to the ER yesterday with complaints of abdominal and back pain. GI has been consulted for pancreatitis. Patient states that he has an intolerance to fatty foods and on the he ate fried chicken wings. Yesterday after eating a turkey sandwich for lunch, 30 minutes later he started having severe abdominal pain that was radiating to his back that progressed to include nausea and vomiting. Patient states that over the past 2 months he has been having intermittent episodes of GI upset abdominal discomfort and diarrhea following certain foods such as greasy or fatty foods. This pain typically lasts for about 24 hours and resolves without intervention. Yesterday the patient states that his pain was severe in his epigastric region radiating to his back. He states that lying on his left side may the pain moved to his right upper abdomen and pain was more severe when he was in a supine position. He has been experiencing intermittent mild nausea but typically is unable to vomit. History of reflux that is relatively well controlled on Nexium 40 mg daily which she has been on for many years. He uses Pepcid Complete on an as-needed basis for breakthrough reflux. Since admission his pain has significantly improved but not resolved. He denies any nausea or vomiting. Denies bloating, odynophagia, dysphagia, reflux, regurgitation, early satiety, unexplained weight loss, appetite loss. He is having daily bowel movements that are typically formed and non urgent. He denies any diarrhea, chronic constipation, hematochezia, or melena. Patient has a longstanding history of ibuprofen use as he was previously taking 400 mg a day a few times weekly for migraines but recently he has been able to decrease his ibuprofen use but has not discontinued it. He denies any aspirin or anticoagulant use. He is a nondrinker nonsmoker and denies marijuana use. Family history negative for CRC or IBD. ENDOSCOPY HISTORY: EGD: Patient has never had an EGD COLONOSCOPY: 07/19/[address] Dax Rausch Findings: Normal perianal and digital rectal exam 8 mm polyp was found in the descending colon. The polyp was sessile. Resected and retrieved 2 sessile polyps were found in the sigmoid colon. Polyps were 4-6 mm in size. Polyps were removed and retrieved Scattered small mouth diverticula were found in the sigmoid colon 3-5 year repeat colonoscopy recommended Bx results: Pathology results not available LABS AND STOOL STUDIES: Labs 07/16/2025: WBC 8, Hgb 13, Hct 40, MCV 84, platelets 264 Sodium 138, potassium 3.6, BUN 17, creatinine 1.48, GFR 50, calcium 8.4 Total bilirubin 0.6, AST 24, ALT 23, Alkaline Phos 33, albumin 4.0 Labs 07/15/2025: WBC 13, Hgb 15, Hct 46, MCV 84, platelets 353 Sodium 144, potassium 3.8, BUN 25, creatinine 1.80, GFR 40, calcium 9.1 Total bilirubin 0.4, AST 31, ALT 28, Alkaline Phos 52, albumin 5.0 Triglyceride 245, lipase 2702 IMAGING: Abdominal ultrasound performed today but results still pending CT abd/pelvis w/contrast 07/15/2025: IMPRESSION: 1. Thickening of the he of the duodenum and jejunum with small amount of surrounding fat stranding. Duodenitis/ileitis is possible. Recommend follow-up to resolution to exclude an underlying mass. 2. Small hiatal hernia. 3. Grossly stable probable hemangioma in the posterior segment of the right lobe of the liver. 4. There is a 1.5 cm fluid attenuation lesion in the left lobe of the liver which is favored to represent a liver cyst. 5. Possible old mild compression fractures in the lower thoracic spine of indeterminate age. Correlate clinically. 6. Small fat-containing bilateral inguinal hernias, larger on the right. <Yvette Batista APRN - Last Filed: 07/16/25 10:08> Review of Systems 2 Constitutional: Constitutional: Reports as per HPI <Yvette Batista APRN - Last Filed: 07/16/25 10:08> ENT: Reports as per HPI <Yvette Batista APRN - Last Filed: 07/16/25 10:08> Cardiovascular: Cardiovascular: Reports as per HPI, Denies chest pain and Denies dyspnea <Yvette Batista APRN - Last Filed: 07/16/25 10:08> Respiratory: Respiratory: Denies cough and Denies dyspnea <Yvette Batista APRN - Last Filed: 07/16/25 10:08> Gastrointestinal: Gastrointestinal: Reports as per HPI <Yvette Batista APRN - Last Filed: 07/16/25 10:08> Musculoskeletal: Musculoskeletal: Reports as per HPI <Yvette Batista APRN - Last Filed: 07/16/25 10:08> Integumentary/Breasts: Skin/Breast: Reports as per HPI <Yvette Batista APRN - Last Filed: 07/16/25 10:08> Psychiatric: Psychiatric: Reports as per HPI <Yvette Batista APRN - Last Filed: 07/16/25 10:08> Endocrine: Endocrine: Reports no additional endocrine complaints <Yvette Batista APRN - Last Filed: 07/16/25 10:08> Hematologic/Lymphatic: Hematologic/Lymphatic: Reports no additional hematologic/lymphatic complaints <Yvette Batista APRN - Last Filed: 07/16/25 10:08> PMFSH Past Medical History Medical History: Medical History Seasonal allergies Chronic kidney disease, stage 3a Vitamin D deficiency Sleep apnea in adult Essential (primary) hypertension Family history of prostate cancer in father Dyslipidemia Anxiety Bee sting allergy History of melanoma Social anxiety disorder Intractable migraine without aura and without status migrainosus GERD without esophagitis <Yvette Batista APRN - Last Filed: 07/16/25 10:08> Surgical History Surgical History: Surgical History History of melanoma excision x2 right nshoulder - 2022 and right lower back - 2018 History of vasectomy (~2017) <Yvette Batista APRN - Last Filed: 07/16/25 10:08> Family History Family History: Family History Father Malignant neoplasm of prostate Other Family history of hearing loss Family history of malignant neoplasm of brain Skin cancer <Yvette Batista APRN - Last Filed: 07/16/25 10:08> Social History Social History: Social History Smoking status: Never smoker Second hand tobacco smoke exposure: No Alcohol intake: never Alcohol use details: consumes 4 beers monthly Substance use: never Substance use type: does not use Lack of Transportation: No Lack of Food: Never True Current Housing: I Have Housing Concerned About Future Housing: No Difficulty Paying Gas/Electric Bills: No Difficulty Paying for Meds: No Currently Unemployed: No Education: Trade/Vocational Certificate Difficulty w/ Childcare or Family Care: No Living arrangements: with family Occupation/Education: occupation 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 Gender identity (if verbalized by the patient): Male Spiritual care concerns: No Agree to blood products: Yes <Yvette Batista APRN - Last Filed: 07/16/25 10:08> Meds Home Medications and Allergies Home medications: Home Medications ?Medication ?Instructions ?Recorded ?Confirmed ?Type galcanezumab-gnlm 120 mg/mL 120 mg subcut MONTHLY 03/1807/15/25 History subcutaneous pen injector (Emgality Pen) cholecalciferol (vitamin D3) 50 50 mcg PO DAILY 07/15/25 History mcg (2,000 unit) tablet esomeprazole magnesium 20 mg 20 mg PO DAILY 06/13/24 0 07/15/25 History tablet,delayed release (Nexium 24HR) fenofibrate 160 mg tablet 160 mg PO DAILY #90 tabs 07/15/25 Rx sumatriptan succinate 100 mg 100 mg PO .COMPLEX PRN mi graine 05/08/25 07/15/25 History tablet (Imitrex) headache atorvastatin 10 mg tablet 10 mg PO QHS 06/12/25 History clonazepam 0.5 mg tablet (Klonopin) 0.5 mg PO DAILY OK N anxiety #30 06/12/25 07/15/25 Rx tabs topiramate 100 mg tablet 100 mg PO DAILY #90 tabs 07/15/25 Rx verapamil 180 mg tablet,extended 180 mg PO DAILY #100 tabs 07/15/25 07/15/25 Rx release <Yvette Batista APRN - Last Filed: 07/16/25 10:08> Allergies/Adverse reactions: Allergies Allergy/AdvReac Type Severity Reaction Status Date / Time No Known Allergies Allergy Verified 07/15/25 15:37 <Yvette Batista APRN - Last Filed: 07/16/25 10:08> Vital Signs Vital Signs - 24 hr 07/15/25 15:28 07/15/25 17:12 07/15/25 18:09 Temperature 97.6 F Pulse Rate 103 H 79 79 Respiratory Rate 13 15 16 Blood Pressure 153/102 H 146/97 H 121/70 Pulse Oximetry 100 95 96 Oxygen Delivery Room Air 07/15/25 18:11 07/15/25 18:42 07/15/25 20:15 Temperature 97.8 F 98.4 F Pulse Rate 86 86 Respiratory Rate 15 14 Blood Pressure 156/98 H 139/87 Pulse Oximetry 100 97 Oxygen Delivery 07/15/25 22:50 07/16/25 03:42 07/16/25 05:43 Temperature 97.8 F Pulse Rate 92 94 85 Respiratory Rate 18 Blood Pressure 147/87 H Pulse Oximetry 92 90 96 Oxygen Delivery Autopap Room Air <Yvette Arteagamiles FIRE EXTINGUISHER REPAIRER INSPECTOR Last Filed: 07/16/25 10:08> Exam 2 Const: General: cooperative, healthy appearing, comfortable, no acute distress and well developed <Yvette SalasVinay Jennimiles FIRE EXTINGUISHER REPAIRER INSPECTOR Last Filed: 07/16/25 10:08> Orientation/consciousness: oriented to person, oriented to place, oriented to time and patient oriented x3 <Yvette SalasVinay Jennimiles FIRE EXTINGUISHER REPAIRER INSPECTOR Last Filed: 07/16/25 10:08> HENMT: Head: normal to inspection, normocephalic and atraumatic <Yvette SalasVinay Jennimiles FIRE EXTINGUISHER REPAIRER INSPECTOR Last Filed: 07/16/25 10:08> Mouth: Yes Normal oral and palatal mucosa present and Yes moist mucous membranes <Yvette SalasVinay Jennimiles FIRE EXTINGUISHER REPAIRER INSPECTOR Last Filed: 07/16/25 10:08> Eyes: General: appearance normal, both eyes and all related structures < Yvette SalasVinay Jennimiles FIRE EXTINGUISHER REPAIRER INSPECTOR Last Filed: 07/16/25 10:08> Conjunctivae: conjunctivae normal <Yvette SalasVinay Jennimiles FIRE EXTINGUISHER REPAIRER INSPECTOR Last Filed: 07/16/25 10:08> Sclera: sclerae normal <Yvette SalasVinay Jennimiles FIRE EXTINGUISHER REPAIRER INSPECTOR Last Filed: 07/16/25 10:08> Pupils: Equal, round and reactive pupils present <Yvette SalasVinay Jennimiles FIRE EXTINGUISHER REPAIRER INSPECTOR Last Filed: 07/16/25 10:08> Neck: Neck: normal visual inspection <Yvette SalasVinay Jennimiles FIRE EXTINGUISHER REPAIRER INSPECTOR Last Filed: 07/16/25 10:08> Chest: Chest palpation & inspection: normal inspection of the chest < Yvette SalasVinay Batista FIRE EXTINGUISHER REPAIRER INSPECTOR Last Filed: 07/16/25 10:08> Resp: Effort & Inspection: normal respiratory effort and able to speak in complete sentences <Yvette SalasVinay Batista APRN - Last Filed: 07/16/25 10:08> Auscultation: clear to auscultation bilaterally <Yvette Bhavik Batista APRN Last Filed: 07/16/25 10:08> Cardio: Jugular venous distension: no JVD <Yvette Bhavik Batista APRN - Last Filed: 07/16/25 10:08> Rate: regular rate <[facility] Last Filed: 07/16/25 10:08> Rhythm: regular rhythm <Yvette Batista APRN Last Filed: 07/16/25 10:08> Heart sounds: S1 normal heart sound present and S2 normal heart sound present <Yevtte Batista [facility] Last Filed: 07/16/25 10:08> GI: Inspection: normal to inspection <Yvette Batista [facility] Last Filed: 07/16/25 10:08> GI Palp: Yes Soft to palpation and Yes No hepatosplenomegaly present <Yvette Batista [facility] Last Filed: 07/16/25 10:08> Auscultation: normal bowel sounds <[facility]vette Batista [facility] Last Filed: 07/16/25 10:08> Rectal Exam: deferred <Yvette Batista [facility] Last Filed: 07/16/25 10:08> Skin: General skin exam: normal color and no rashes or lesions noted < Yvette Batista [facility] Last Filed: 07/16/25 10:08> Neuro: General: oriented to person, oriented to place, oriented to time and patient oriented x3 <Yvette Batista APRN Last Filed: 07/16/25 10:08> Cranial nerves: Yes Equal, round and reactive pupils present <[facility] Last Filed: 07/16/25 10:08> Speech: normal speech <Yvette Batista [facility] Last Filed: 07/16/25 10:08> Extrem: General: normal to inspection and no clubbing, cyanosis or edema < Yvette Batista [facility] Last Filed: 07/16/25 10:08> Psych: Appearance: grossly normal and well kempt <Yvette Bat[facility] Last Filed: 07/16/25 10:08> Affect: normal affect <Yvette Batista [facility] Last Filed: 07/16/25 10:08> Results Labs CBC & Chem 7: 07/16/25 05:10 07/16/25 05:10 <Yvette Batista APRN - Last Filed: 07/16/25 10:08> Labs: Short CBC 07/15/25 07/16/25 Range/Units 15:36 05:10 WBC 13.0 H 7.9 (4.5-10.0) K/mm3 Hgb 15.2 13.3 L (14.0-18.0) g/dL Hct 45.9 39.9 L (42.0-52.0) % Plt Count 353 264 (150-375) k/mm3 BMP 07/15/25 07/16/25 15:36 05:10 Sodium 144 138 Potassium 3.8 3.6 Chloride 108 H 109 H Carbon Dioxide 22 20 L BUN 25 H 17 Creatinine 1.80 H 1.48 H Glucose 100 95 Calcium 9.1 8.4 Liver Function 07/15/25 07/16/25 Range/Units 15:36 05:10 Total Bilirubin 0.4 0.6 (0.2-1.3) mg/dL AST 31 24 (17-59) U/L ALT 28 23 (6-50) U/L Alkaline Phosphatase 52 33 L (38-126) U/L Albumin 5.0 4.0 (3.5-5.1) g/dL Urine 07/15/25 Range/Units 15:36 Urine Color Yellow (Yellow) Urine Appearance Clear (Clear) Urine pH 5.5 (5.0-9.0) Ur Specific [place] 1.028 (1.001-1.035) Urine Protein Negative (Negative) mg/dL Urine Glucose (UA) Negative (Negative) mg/dL <Yvette Batista APRN - Last Filed: 07/16/25 10:08> Attestation Supervising Provider Attestation I, Maurice Boston MD, have provided a substantive portion of the care of this patient and discussed the patient with my Nurse Practitioner. I have reviewed any new relevant radiographic and laboratory results including medications. I agree with her documentation as noted below.?I personally performed the medical decision making and much of the history and exam for this encounter. briefly, he has been having abdominal discomfort for 2 months after eating fatty meals that also will cause diarrhea, he does not really much alcohol but Tuesday had fried chicken with 2 alcoholic drinks and next day with severa abdominal pain, ER evaluation noted pancreatitis, CT scan possible duodenitis that probably is from pancreatitis but radiologist recommend follow-up to exclude malignancy. Liver enzymes normal, US normal GB, no biliary dilation. Most likely is just from pancreatitis but will get MRCP to have better visualization, suspect also GB dysfunction for last 2 months- always discomfort after eating fatty meals and now with new onset pancreatitis. Liquid diet, will ask surgery to evaluate. <Maurice Boston MD - Last Filed: 07/16/25 15:56>
[2025-07-16] MEDS: cefTRIAXone 1 GM in SODIUM CHLORIDE 0.9% IV 50 ML 100 ML IVPB (09:43)
[2025-07-16] MEDS: PANTOPRAZOLE SODIUM IV 40 MG VIAL IV PUSH ×2 (09:43→21:50)
--- NOTE | 2025-07-16 10:11 | PM.IMPN ---
Progress Note: A&P Assessment and Plan (1) Essential (primary) hypertension: Code(s): I10 - Essential (primary) hypertension Status: Acute (2) Dyslipidemia: Code(s): E78.5 - Hyperlipidemia, unspecified Status: Acute (3) Duodenitis: Code(s): K29.80 - Duodenitis without bleeding Status: Acute (4) Pancreatitis: Qualifiers: Acute pancreatitis complication: no infection or necrosis Chronicity: acute Pancreatitis type: unspecified pancreatitis type Qualified Code(s): K85.90 - Acute pancreatitis without necrosis or infection, unspecified Code(s): K85.90 - Acute pancreatitis without necrosis or infection, unspecified Status: Acute Plan 50-year-old male with past medical history of hypertension, hyperlipidemia presenting with abdominal pain, initial workup suggestive of acute pancreatitis with unclear etiology along with duodenitis/ileitis. 1. Acute abdominal pain: Secondary to acute pancreatitis+ acute duodenitis/ileitis Admit to General Medicine NPO Pain control IV fluids Zofran p.r.n. PPI IV b.i.d. Will add ceftriaxone and Flagyl for possible duodenitis GI has been consulted Monitor leukocytosis clear liquid per gi is able will restart home meds when pt diet is advanced 2. Holding all oral medications if not necessary 3. Code status: Full 4. DVT prophylaxis: Heparin subQ 5. Disposition: Admited to General Medicine Time Spent With Patient Time with patient: 25 - 35 minutes Subjective Date/time seen: 07/16/25 10:11 Interval history: 50-year-old male with past medical history of hypertension, hyperlipidemia, fat intolerance presenting with acute abdominal pain. According to him he usually does not tolerate fatty food. Yesterday he had fried chicken wings. This morning he had normal breakfast with eggs, followed by a lunch which was ham turkey sandwich. 30 minutes later he started having severe abdominal pain, radiating to back, followed by nausea but no vomiting. No diarrhea, no fever. Patient denies any history of gallstones. Patient does not drink alcohol on a daily basis. No prior history of pancreatitis. Blood work was remarkable for mild leukocytosis along with elevated lipase level. CT abdomen pelvis shows thickening of he of duodenum and jejunum with small amount of surrounding fat stranding, duodenitis/ileitis as possible. pt is seen and examined. he is resting in beds, with eyes closed. no acute distress, pain is well controlled gi is following Review of Systems Review of Systems: All systems reviewed & are unremarkable except as noted in HPI and below Exam Const: General: comfortable and no acute distress HENMT: Mouth: Yes moist mucous membranes Eyes: Sclera: sclerae normal Pupils: Equal, round and reactive pupils present Neck: Neck: supple Resp: Effort & Inspection: normal respiratory effort Auscultation: clear to auscultation bilaterally Cardio: Rate: regular rate Rhythm: regular rhythm GI: Auscultation: normal bowel sounds Skin: General skin exam: normal color Neuro: Cranial nerves: Yes Equal, round and reactive pupils present Speech: normal speech Extrem: General: normal to inspection Psych: Mental Status: mental status grossly normal Objective Data Vital Signs Vital Signs: Vital Signs - 24 hr 07/15/25 15:28 07/15/25 17:12 07/15/25 18:09 Temperature 97.6 F Pulse Rate 103 H 79 79 Respiratory Rate 13 15 16 Blood Pressure 153/102 H 146/97 H 121/70 Pulse Oximetry 100 95 96 Oxygen Delivery Room Air 07/15/25 18:11 07/15/25 18:42 07/15/25 20:15 Temperature 97.8 F 98.4 F Pulse Rate 86 86 Respiratory Rate 15 14 Blood Pressure 156/98 H 139/87 Pulse Oximetry 100 97 Oxygen Delivery 07/15/25 22:50 07/16/25 03:42 07/16/25 05:43 Temperature 97.8 F Pulse Rate 92 94 85 Respiratory Rate 18 Blood Pressure 147/87 H Pulse Oximetry 92 90 96 Oxygen Delivery Autopap Room Air Intake/Output Intake/Output: Intake & Output 07/13/25 07/14/25 07/15/25 07/16/25 23:59 23:59 23:59 23:59 Intake Total 2450 891.7 Output Total 500 Balance 2450 391.7 Meds/Results Medications: Active Medications Generic Name Dose Route Start Last Admin Trade Name Freq PRN Reason Stop Dose Admin Heparin Sodium (Porcine) 5,000 units 07/15/25 22:00 07/16/25 06:27 Heparin Sodium 5,000 Units/Ml Vial SUB-Q 5,000 units Q8HR DAYO Administration Sodium Chloride 1,000 mls @ 125 mls/hr 07/15/25 17:50 07/16/25 03:42 Normal Saline Iv IV CONT 125 mls/hr .Q8H DAYO Administration Ceftriaxone Sodium 1 gm/ 50 mls @ 100 mls/hr 07/15/25 18:20 07/16/25 09:43 Sodium Chloride IVPB 100 mls/hr DAILY DAYO Administration Metronidazole 500 mg in 100 mls @ 100 mls/hr 07/15/25 22:00 07/16/25 06:26 Flagyl 500 Mg/Iso Soln 100 Ml IVPB 100 mls/hr Q8HR DAYO Administration Morphine Sulfate 1 mg 07/15/25 18:16 07/16/25 03:40 Morphine Sulfate (*Crx) 4 Mg/Ml Inj IV PUSH 1 mg Q3HR PRN Administration abdominal pain Ondansetron HCl 4 mg 07/15/25 18:15 07/15/25 20:39 Ondansetron Inj 4 Mg/2 Ml Vial IV PUSH 4 mg Q4HR PRN Administration nausea/vomiting Pantoprazole Sodium 40 mg 07/15/25 21:00 07/16/25 09:43 Pantoprazole Sodium Iv 40 Mg Vial IV PUSH 40 mg Q12HR DAYO Administration Radiology Results: ITS Impressions Abdomen/Pelvis CT 07/15/25 16:18 IMPRESSION: 1. Thickening of the he of the duodenum and jejunum with small amount of surrounding fat stranding. Duodenitis/ileitis is possible. Recommend follow-up to resolution to exclude an underlying mass. 2. Small hiatal hernia. 3. Grossly stable probable hemangioma in the posterior segment of the right lobe of the liver. 4. There is a 1.5 cm fluid attenuation lesion in the left lobe of the liver which is favored to represent a liver cyst. 5. Possible old mild compression fractures in the lower thoracic spine of indeterminate age. Correlate clinically. 6. Small fat-containing bilateral inguinal hernias, larger on the right. Findings as above. Upper Quadrant Ultrasound 07/16/25 10:04 IMPRESSION: 1. No acute findings. No gallstones or evidence of cholecystitis. 2. Incompletely seen lesion right lobe liver with indeterminate ultrasound characteristics, although CT characteristics most consistent with hemangioma. Recommend six-month follow-up ultrasound. Alternatively, MRI liver protocol for definitive characterization obviating need for future surveillance if in fact a hemangioma. Labs Labs: Laboratory Results - last 24 hr 07/15/25 07/15/25 07/16/25 15:35 15:36 05:10 WBC 13.0 H 7.9 RBC 5.46 4.74 Hgb 15.2 13.3 L Hct 45.9 39.9 L MCV 84.1 84.2 MCH 27.8 28.1 MCHC 33.1 33.3 RDW 12.5 12.6 Plt Count 353 264 MPV 10.8 H 11.4 H Immature Gran % (Auto) 0.7 H 0.4 Neut % (Auto) 81.3 H 74.9 H Lymph % (Auto) 11.8 L 16.1 L [place] % (Auto) 4.8 7.1 Eos % (Auto) 0.6 1.0 Baso % (Auto) 0.8 0.5 Lymph # (Auto) 1.53 1.27 [place] # (Auto) 0.6 0.6 Eos # (Auto) 0.1 0.1 Baso # (Auto) 0.1 0.0 Abs Immat Gran (auto) 0.09 H 0.03 Absolute Neuts (auto) 10.6 H 5.9 Absolute Nucleated RBC 0.000 0.000 Nucleated RBC % 0.0 0.0 Sodium 144 138 Potassium 3.8 3.6 Chloride 108 H 109 H Carbon Dioxide 22 20 L Anion Gap 14 H 9 BUN 25 H 17 Creatinine 1.80 H 1.48 H Estim Creat Clear Calc 55 67 Estimated GFR 40 L 50 L Glucose 100 95 Calcium 9.1 8.4 Magnesium 2.2 Total Bilirubin 0.4 0.6 AST 31 24 ALT 28 23 Alkaline Phosphatase 52 33 L Total Protein 8.3 H 6.5 Albumin 5.0 4.0 Triglycerides 245 H Lipase 2702 H Urine Color Yellow Urine Appearance Clear Urine pH 5.5 Ur Specific [place] 1.028 Urine Protein Negative Urine Glucose (UA) Negative Urine Ketones Negative Ur Blood (Man) Negative Urine Nitrate Negative Urine Bilirubin Negative Urine Urobilinogen 1.0 Leukocyte Esterase Rfl Negative Quality VTE Prophylaxis VTE prophylaxis: pharmacologic ordered
[2025-07-16] MEDS: ONDANSETRON INJ 4 MG/2 ML VIAL IV PUSH ×2 (13:29→21:49)
[2025-07-16 13:51] VITALS: BP 137/82; PULSE 88; RESP 16; TEMP 36.9; O2SAT 97
--- NOTE | 2025-07-16 16:27 | PM.CNGS ---
Assessment and Plan Assessment and plan (1) Pancreatitis: Qualifiers: Acute pancreatitis complication: no infection or necrosis Chronicity: acute Pancreatitis type: unspecified pancreatitis type Qualified Code(s): K85.90 - Acute pancreatitis without necrosis or infection, unspecified Code(s): K85.90 - Acute pancreatitis without necrosis or infection, unspecified Status: Acute Assessment and Plan: I reviewed the CT and ultrasound of discussed the findings with the patient. He is still receiving further workup for potential causes of the acute pancreatitis. Will await MRCP results to decide if any further testing is needed at this time. Continue treatment as per the appraisal analyst. Could consider outpatient workup further for gallbladder dysfunction including a HIDA scan with CCK. If there are any findings on the MRCP to suggest gallbladder issues, could consider laparoscopic cholecystectomy during this hospitalization to prevent recurrent pancreatitis. Will continue to follow along with patient. (2) Duodenitis: Code(s): K29.80 - Duodenitis without bleeding Status: Acute (3) Sleep apnea in adult: Code(s): G47.30 - Sleep apnea, unspecified Status: Acute (4) Essential (primary) hypertension: Code(s): I10 - Essential (primary) hypertension Status: Acute History of Present Illness Consult details Consult date: 07/16/25 Reason for consult: other (Possible gallbladder dysfunction) Requesting physician: Maurice Boston MD Narrative: This is a 50-year-old man who I am asked to see for possible gallbladder issues. He was just admitted from the emergency department last night with signs of acute pancreatitis. He states he has been having intermittent abdominal discomfort and diarrhea particularly after eating fatty meals for the past several months. He has been trying to eat lower fat and this has helped limit symptoms. Over the weekend he eaten some fried chicken wings and yesterday began experiencing acute onset of epigastric pain radiating to the back. He states this pain was much different than what he experienced before with the fatty foods. He has never a prior history of pancreatitis and denies any heavy alcohol use. Today his pain is a little bit more on the right mid to lower abdomen. In the emergency department he was noted to have an elevated white blood count and elevated lipase on his lab work. CT showed evidence of duodenitis and enteritis but no significant findings suggestive of pancreatitis or cholecystitis. He was admitted for further workup. Gallbladder ultrasound performed this morning was normal. Review of Systems Review of Systems: All systems reviewed & are unremarkable except as noted in HPI and below Constitutional: Constitutional: Denies chills and Denies fever(s) Eyes: Eyes: Denies change in vision ENT: Denies hearing loss, Denies neck pain and Denies sore throat Cardiovascular: Cardiovascular: Denies chest pain and Denies dyspnea Respiratory: Respiratory: Denies cough, Denies dyspnea and Denies wheezing Genitourinary: Genitourinary: Denies hematuria and Denies dysuria Musculoskeletal: Musculoskeletal: Denies arthralgias, Denies joint swelling and Denies neck pain Allergic/Immunologic: Allergic/Immunologic: Denies wheezing PMFSH Past Medical History Medical History Seasonal allergies Chronic kidney disease, stage 3a Vitamin D deficiency Sleep apnea in adult Essential (primary) hypertension Family history of prostate cancer in father Dyslipidemia Anxiety Bee sting allergy History of melanoma Social anxiety disorder Intractable migraine without aura and without status migrainosus GERD without esophagitis Surgical History Surgical History History of melanoma excision x2 right nshoulder - 2022 and right lower back - 2018 History of vasectomy (~2018) Family History Family History Father Malignant neoplasm of prostate Other Family history of hearing loss Family history of malignant neoplasm of brain Skin cancer Social History Social History Smoking status: Never smoker Second hand tobacco smoke exposure: No Alcohol intake: never Alcohol use details: consumes 4 beers monthly Substance use: never Substance use type: does not use Lack of Transportation: No Lack of Food: Never True Current Housing: I Have Housing Concerned About Future Housing: No Difficulty Paying Gas/Electric Bills: No Difficulty Paying for Meds: No Currently Unemployed: No Education: Trade/Vocational Certificate Difficulty w/ Childcare or Family Care: No Living arrangements: with family Occupation/Education: occupation 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 Gender identity (if verbalized by the patient): Male Spiritual care concerns: No Agree to blood products: Yes Meds Home Medications and Allergies Home Medications ?Medication ?Instructions ?Recorded ?Confirmed ?Type galcanezumab-gnlm 120 mg/mL 120 mg subcut MONTHLY 04/13/22 07/15/25 History subcutaneous pen injector (Emgality Pen) cholecalciferol (vitamin D3) 50 50 mcg PO DAILY 06/13/24 07/15/25 History mcg (2,000 unit) tablet esomeprazole magnesium 20 mg 20 mg PO DAILY 06/13/24 07/15/25 History tablet,delayed release (Nexium 24HR) fenofibrate 160 mg tablet 160 mg PO DAILY #90 tabs 04/01/25 07/15/25 Rx sumatriptan succinate 100 mg 100 mg PO .COMPLEX PRN migraine 05/08/25 07/15/25 History tablet (Imitrex) headache atorvastatin 10 mg tablet 10 mg PO QHS 06/12/25 07/15/25 History clonazepam 0.5 mg tablet (Klonopin) 0.5 mg PO DAILY PRN anxiety #30 06/12/25 07/15/25 Rx tabs topiramate 100 mg tablet 100 mg PO DAILY #90 tabs 07/10/25 07/15/25 Rx verapamil 180 mg tablet,extended 180 mg PO DAILY #100 tabs 07/15/25 07/15/25 Rx release Allergies Allergy/AdvReac Type Severity Reaction Status Date / Time No Known Allergies Allergy Verified 07/15/25 15:37 Vital Signs Vital Signs - 24 hr 07/15/25 17:12 07/15/25 18:09 07/15/25 18:11 Temperature 97.8 F Pulse Rate 79 79 Respiratory Rate 15 16 Blood Pressure 146/97 H 121/70 Pulse Oximetry 95 96 Oxygen Delivery 07/15/25 18:42 07/15/25 20:15 07/15/25 22:50 Temperature 98.4 F Pulse Rate 86 86 92 Respiratory Rate 15 14 Blood Pressure 156/98 H 139/87 Pulse Oximetry 100 97 92 Oxygen Delivery Autopap 07/16/25 03:42 07/16/25 05:43 07/16/25 08:00 Temperature 97.8 F Pulse Rate 94 85 Respiratory Rate 18 Blood Pressure 147/87 H Pulse Oximetry 90 96 Oxygen Delivery Room Air Room Air 07/16/25 13:51 Temperature 98.4 F Pulse Rate 88 Respiratory Rate 16 Blood Pressure 137/82 Pulse Oximetry 97 Oxygen Delivery Exam Const: General: alert; No acute distress Orientation/consciousness: patient oriented x3 Limitations: no limitations HENMT: Head: normocephalic and atraumatic Ears: hearing grossly normal bilaterally Face/Nose/Sinus: Normal external nose present and Normal nares present Mouth: Yes Normal oral and palatal mucosa present and Yes moist mucous membranes Eyes: General: appearance normal, both eyes and all related structures Conjunctivae: conjunctivae normal Sclera: sclerae normal Pupils: Equal, round and reactive pupils present EOM: EOMs intact bilaterally Neck: Neck: normal visual inspection, full ROM, no lymphadenopathy, supple and no JVD Lymphatic: no lymphadenopathy noted Chest: Chest palpation & inspection: normal inspection of the chest Resp: Effort & Inspection: normal respiratory effort and able to speak in complete sentences Auscultation: clear to auscultation bilaterally Percussion: percussion normal Cardio: Jugular venous distension: no JVD Rate: regular rate Rhythm: regular rhythm Heart sounds: S1 normal heart sound present and S2 normal heart sound present Peripheral pulses: Peripheral pulses 2+ throughout GI: Inspection: normal to inspection GI Palp: Yes Soft to palpation, Yes Tenderness to palpation present (GI) (Mild epigastric), No Guarding due to palpation present (GI) and No Rebound tenderness present Percussion: Yes normal to percussion Auscultation: normal bowel sounds : General: Yes no CVA tenderness Back/Spine/Pelvis: Back: no CVA tenderness Skin: General skin exam: normal color and dry skin Neuro: General: patient oriented x3, gait normal, moves all extremities, no focal motor deficits and CN's II-XI intact bilaterally Cranial nerves: Yes Equal, round and reactive pupils present Speech: normal speech Extrem: General: normal to inspection and capillary refill normal Results Labs 07/16/25 05:10 07/16/25 05:10 Labs: Abnormal lab results 07/15/25 07/16/25 Range/Units 15:35 05:10 Hgb 13.3 L (14.0-18.0) g/dL Hct 39.9 L (42.0-52.0) % MPV 11.4 H (7.4-10.4) fl Neut % (Auto) 74.9 H (45.5-73.1) % Lymph % (Auto) 16.1 L (18.3-44.2) % Chloride 109 H (98-107) mmol/L Carbon Dioxide 20 L (22-30) mmol/L Creatinine 1.48 H (0.7-1.3) mg/dL Estimated GFR 50 L (59 - ) Alkaline Phosphatase 33 L (38-126) U/L Triglycerides 245 H (<150) mg/dL Diabetes panel 07/15/25 07/16/25 Range/Units 15:35 05:10 Sodium 138 (137-145) mmol/L Potassium 3.6 (3.4-5.0) mmol/L Chloride 109 H (98-107) mmol/L Carbon Dioxide 20 L (22-30) mmol/L BUN 17 (9-20) mg/dL Creatinine 1.48 H (0.7-1.3) mg/dL Glucose 95 (65-110) mg/dL Calcium 8.4 (8.4-10.2) mg/dL AST 24 (17-59) U/L ALT 23 (6-50) U/L Alkaline Phosphatase 33 L (38-126) U/L Total Protein 6.5 (6.3-8.2) g/dL Albumin 4.0 (3.5-5.1) g/dL Triglycerides 245 H (<150) mg/dL Calcium panel 07/16/25 Range/Units 05:10 Calcium 8.4 (8.4-10.2) mg/dL Albumin 4.0 (3.5-5.1) g/dL Pituitary panel 07/16/25 Range/Units 05:10 Sodium 138 (137-145) mmol/L Potassium 3.6 (3.4-5.0) mmol/L Chloride 109 H (98-107) mmol/L Carbon Dioxide 20 L (22-30) mmol/L BUN 17 (9-20) mg/dL Creatinine 1.48 H (0.7-1.3) mg/dL Glucose 95 (65-110) mg/dL Calcium 8.4 (8.4-10.2) mg/dL Adrenal panel 07/16/25 Range/Units 05:10 Sodium 138 (137-145) mmol/L Potassium 3.6 (3.4-5.0) mmol/L Chloride 109 H (98-107) mmol/L Carbon Dioxide 20 L (22-30) mmol/L BUN 17 (9-20) mg/dL Creatinine 1.48 H (0.7-1.3) mg/dL Glucose 95 (65-110) mg/dL Calcium 8.4 (8.4-10.2) mg/dL Total Bilirubin 0.6 (0.2-1.3) mg/dL AST 24 (17-59) U/L ALT 23 (6-50) U/L Alkaline Phosphatase 33 L (38-126) U/L Total Protein 6.5 (6.3-8.2) g/dL Albumin 4.0 (3.5-5.1) g/dL All other labs normal. Imaging Additional studies: ITS Impressions Abdomen/Pelvis CT 07/15/25 16:18 IMPRESSION: 1. Thickening of the he of the duodenum and jejunum with small amount of surrounding fat stranding. Duodenitis/ileitis is possible. Recommend follow-up to resolution to exclude an underlying mass. 2. Small hiatal hernia. 3. Grossly stable probable hemangioma in the posterior segment of the right lobe of the liver. 4. There is a 1.5 cm fluid attenuation lesion in the left lobe of the liver which is favored to represent a liver cyst. 5. Possible old mild compression fractures in the lower thoracic spine of indeterminate age. Correlate clinically. 6. Small fat-containing bilateral inguinal hernias, larger on the right. Findings as above. Upper Quadrant Ultrasound 07/16/25 10:04 IMPRESSION: 1. No acute findings. No gallstones or evidence of cholecystitis. 2. Incompletely seen lesion right lobe liver with indeterminate ultrasound characteristics, although CT characteristics most consistent with hemangioma. Recommend six-month follow-up ultrasound. Alternatively, MRI liver protocol for definitive characterization obviating need for future surveillance if in fact a hemangioma.
[2025-07-16 20:00] VITALS: PULSE 88; RESP 16; O2SAT 97
[2025-07-16 21:21] VITALS: BP 130/79; PULSE 87; RESP 14; TEMP 36.2; O2SAT 97
[2025-07-16 22:46] VITALS: PULSE 88; O2SAT 96
[2025-07-17 05:26] VITALS: BP 140/90; PULSE 94; RESP 18; TEMP 37; O2SAT 97
[2025-07-17] MEDS: metroNIDAZOLE 500 MG/ISO 100ML 500 MG/100 ML BAG 100 MG IVPB ×3 (06:27→21:30)
[2025-07-17] MEDS: SODIUM CHLORIDE 0.9% IV 1,000 ML 125 ML IV CONT ×3 (06:29→21:30)
[2025-07-17 08:47] LABS: Hematocrit 39.9 % (42.0-52.0); Hemoglobin 13.4 g/dL (14.0-18.0); Immature Granulocyte Percent A 0.6 % (0-0.5); Lymphocytes Absolute Auto 1.39 K/mm3 (0.9-3.2); Mean Corpuscular HGB Conc 33.6 g/dl (32-36); Mean Corpuscular Hemoglobin 28.3 pg (26-34); Mean Corpuscular Volume 84.2 fl (80-100); Nucleated Red Blood Cells Absolute Auto 0.000 K/mm3 (0.0-0.012); Nucleated Red Blood Cells Perc 0.0 % (0.0-0.2); Platelet Count Result 258 k/mm3 (150-375); Red Blood Count 4.74 M/mm3 (4.6-6.20); White Blood Count 9.7 K/mm3 (4.5-10.0)
[2025-07-17] MEDS: PANTOPRAZOLE SODIUM IV 40 MG VIAL IV PUSH ×2 (08:58→21:29)
[2025-07-17] MEDS: cefTRIAXone 1 GM in SODIUM CHLORIDE 0.9% IV 50 ML 100 ML IVPB (08:58)
[2025-07-17] MEDS: MORPHINE SULFATE (*CRX) 4 MG/ML INJ 1 MG IV PUSH ×2 (09:07→21:45)
[2025-07-17 09:23] LABS: Alanine Aminotransferase 19 U/L (6-50); Albumin Level 4.1 g/dL (3.5-5.1); Alkaline Phosphatase 38 U/L (38-126); Anion Gap 8 mmol/L (4-12); Aspartate Amino Transferase 29 U/L (17-59); Bilirubin,Total 0.9 mg/dL (0.2-1.3); Blood Urea Nitrogen 14 mg/dL (9-20); Calcium 8.6 mg/dL (8.4-10.2); Carbon Dioxide 24 mmol/L (22-30); Chloride 105 mmol/L (98-107); Estimated CRCL calculation 63 ml/min; Estimated Glomerular Filt Rate 47; Glucose 96 mg/dL (65-110); Lipase 130 U/L (23-300); Potassium 3.9 mmol/L (3.4-5.0); Sodium 137 mmol/L (137-145); Total Protein 6.9 g/dL (6.3-8.2)
--- NOTE | 2025-07-17 09:28 | P.PNIM_ITS ---
Progress Note: A&P Assessment and Plan (1) Pancreatitis: Qualifiers: Acute pancreatitis complication: no infection or necrosis Chronicity: acute Pancreatitis type: unspecified pancreatitis type Qualified Code(s): K85.90 - Acute pancreatitis without necrosis or infection, unspecified Code(s): K85.90 - Acute pancreatitis without necrosis or infection, unspecified Status: Acute Assessment and Plan: Lipase 2702 on admission, has returned to WNL - Pancreas unremarkable on CT - RUQ US: No acute findings. No gallstones or evidence of cholecystitis. - MRCP: Acute interstitial pancreatitis with secondary inflammation of the duodenum. 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 Could consider outpatient workup further for gallbladder dysfunction including a HIDA scan with CCK. - GI consulted Given that pancreas is normal on CT symptoms likely related to early pancreatitis or lipase elevation secondary to duodenitis Will check stool for H-Pylori and if possible will start treatment May consider outpatient HIDA scan for possible underlying cause of his intolerance to fatty foods and chronic intermittent pain (2) Duodenitis: Code(s): K29.80 - Duodenitis without bleeding Status: Acute Assessment and Plan: CT abdomen/pelvis: Thickening of the he of the duodenum and jejunum with small amount of surrounding fat stranding. Duodenitis/ileitis is possible. Gentle IV fluid resuscitation Antibiotic: Rocephin and flagyl Diet: Clear liquid Monitor vital signs, I&Os, track stool output, watch for bloody stools, neuro status and patient is a fall risk Monitor serum electrolytes and CBC (3) Liver hemangioma: Code(s): D18.03 - Hemangioma of intra-abdominal structures Status: Acute Assessment and Plan: Imaging dating back to September 2017 showing findings consistent with hemangiomas, largest measuring 5.4 cm in the right hepatic lobe. CT this admission showed stable probable hemangioma in the posterior segment of the right lobe of the liver and a 1.5 cm fluid attenuation lesion in the left lobe of the liver which is favored to represent a liver cyst. LFT's normal. Per GI, no further workup required at this time (4) Essential (primary) hypertension: Code(s): I10 - Essential (primary) hypertension Status: Acute Assessment and Plan: Chronic, continue home medications - verapamil 180 mg daily - blood pressures reviewed in remains stable, continue to monitor Time Spent With Patient Time with patient: 25 - 35 minutes Subjective Date/time seen: 07/17/25 09:28 Interval history: 50-year-old male with past medical history of hypertension, hyperlipidemia, fat intolerance presenting with acute abdominal pain. Patient is pleasant sitting up comfortably in a chair. He has no complaints at this time stating that he feels much better admission. He denies any chest pain, shortness a breath, palpitations, nausea/vomiting and abdominal pain. Patient states he is tolerating his clear liquid diet well. Will advance per surgery and GI recommendations. Review of Systems Review of Systems: All systems reviewed & are unremarkable except as noted in HPI and below Exam Narrative: AF HR 94 RR 18 Spo2 97 BP 140/90 General: male in no acute respiratory distress who is nontoxic appearing, sitting up in chair HEENT: Normocephalic. Atraumatic. Extraocular movement intact. Sclera clear and anicteric. No facial asymmetry. Chest: Lungs are clear to auscultation bilaterally. No wheezes or crackles. CV: Heart was regular rate and rhythm. Abd: Abdomen was soft. Nontender. Nondistended. Positive bowel sounds. Neuro: Patient is alert. Speech is clear. Objective Data Vital Signs Vital Signs: Vital Signs - 24 hr 07/16/25 13:51 07/16/25 20:00 07/16/25 21:21 Temperature 98.4 F 97.1 F L Pulse Rate 88 88 87 Respiratory Rate 16 16 14 Blood Pressure 137/82 130/79 Pulse Oximetry 97 97 97 Oxygen Delivery Room Air 07/16/25 22:46 07/17/25 03:02 07/17/25 05:26 Temperature 98.6 F Pulse Rate 88 94 Respiratory Rate 18 Blood Pressure 140/90 Pulse Oximetry 96 97 Oxygen Delivery CPAP CPAP Intake/Output Intake/Output: Intake & Output 07/14/25 07/15/25 07/16/25 07/17/25 23:59 23:59 23:59 23:59 Intake Total 2450 3659.7 1000 Output Total 500 500 Balance 2450 3159.7 500 Meds/Results Medications: Active Medications Generic Name Dose Route Start Last Admin Trade Name Freq PRN Reason Stop Dose Admin Acetaminophen 650 mg 07/16/25 10:30 Acetaminophen 325 Mg Tablet PO Q6H PRN Mild Pain (1-3) or Fever Heparin Sodium (Porcine) 5,000 units 07/15/25 22:00 07/17/25 06:29 Heparin Sodium 5,000 Units/Ml Vial SUB-Q 5,000 units Q8HR DAYO Administration Sodium Chloride 1,000 mls @ 125 mls/hr 07/15/25 17:50 07/17/25 06:29 Normal Saline Iv IV CONT 125 mls/hr .Q8H DAYO Administration Ceftriaxone Sodium 1 gm/ 50 mls @ 100 mls/hr 07/15/25 18:20 07/17/25 08:58 Sodium Chloride IVPB 100 mls/hr DAILY DAYO Administration Metronidazole 500 mg in 100 mls @ 100 mls/hr 07/15/25 22:00 07/17/25 06:27 Flagyl 500 Mg/Iso Soln 100 Ml IVPB 100 mls/hr Q8HR DAYO Administration Morphine Sulfate 1 mg 07/15/25 18:16 07/17/25 09:07 Morphine Sulfate (*Crx) 4 Mg/Ml Inj IV PUSH 1 mg Q3HR PRN Administration abdominal pain Ondansetron HCl 4 mg 07/15/25 18:15 07/16/25 21:49 Ondansetron Inj 4 Mg/2 Ml Vial IV PUSH 4 mg Q4HR PRN Administration nausea/vomiting Pantoprazole Sodium 40 mg 07/15/25 21:00 07/17/25 08:58 Pantoprazole Sodium Iv 40 Mg Vial IV PUSH 40 mg Q12HR DAYO Administration Sumatriptan Succinate 100 mg 07/16/25 10:42 07/17/25 07:46 Sumatriptan Succinate 25 Mg Tablet PO 100 mg PRN PRN Administration Migraine Headache Sumatriptan Succinate 100 mg 07/16/25 15:34 Sumatriptan Succinate 25 Mg Tablet PO PRN PRN Migraine Headache Topiramate 100 mg 07/17/25 09:00 Topiramate 100 Mg Tablet PO DAILY [facility] Radiology Results: ITS Impressions Abdomen/Pelvis CT 07/15/25 16:18 IMPRESSION: 1. Thickening of the he of the duodenum and jejunum with small amount of surrounding fat stranding. Duodenitis/ileitis is possible. Recommend follow-up to resolution to exclude an underlying mass. 2. Small hiatal hernia. 3. Grossly stable probable hemangioma in the posterior segment of the right lobe of the liver. 4. There is a 1.5 cm fluid attenuation lesion in the left lobe of the liver which is favored to represent a liver cyst. 5. Possible old mild compression fractures in the lower thoracic spine of indeterminate age. Correlate clinically. 6. Small fat-containing bilateral inguinal hernias, larger on the right. Findings as above. Upper Quadrant Ultrasound 07/16/25 10:04 IMPRESSION: 1. No acute findings. No gallstones or evidence of cholecystitis. 2. Incompletely seen lesion right lobe liver with indeterminate ultrasound characteristics, although CT characteristics most consistent with hemangioma. Recommend six-month follow-up ultrasound. Alternatively, MRI liver protocol for definitive characterization obviating need for future surveillance if in fact a hemangioma. Labs Labs: Laboratory Results - last 24 hr 07/17/25 08:30 WBC 9.7 RBC 4.74 Hgb 13.4 L Hct 39.9 L MCV 84.2 MCH 28.3 MCHC 33.6 RDW 12.3 Plt Count 258 MPV 10.8 H Immature Gran % (Auto) 0.6 H Neut % (Auto) 75.2 H Lymph % (Auto) 14.3 L [place] % (Auto) 8.9 H Eos % (Auto) 0.6 Baso % (Auto) 0.4 Lymph # (Auto) 1.39 [place] # (Auto) 0.9 H Eos # (Auto) 0.1 Baso # (Auto) 0.0 Abs Immat Gran (auto) 0.06 H Absolute Neuts (auto) 7.3 H Absolute Nucleated RBC 0.000 Nucleated RBC % 0.0 Sodium 137 Potassium 3.9 Chloride 105 Carbon Dioxide 24 Anion Gap 8 BUN 14 Creatinine 1.57 H Estim Creat Clear Calc 63 Estimated GFR 47 L Glucose 96 Calcium 8.6 Total Bilirubin 0.9 AST 29 ALT 19 Alkaline Phosphatase 38 Total Protein 6.9 Albumin 4.1 Lipase 130 Quality VTE Prophylaxis VTE prophylaxis: pharmacologic ordered
[2025-07-17] MEDS: LORazepam (*CRX) 0.5 MG TABLET PO (10:12)
[2025-07-17] MEDS: TOPIRAMATE 100 MG TABLET PO (12:14)
--- NOTE | 2025-07-17 13:19 | P.PNGS_ITS ---
Progress Note: A&P Assessment and Plan (1) Pancreatitis: Qualifiers: Acute pancreatitis complication: no infection or necrosis Chronicity: acute Pancreatitis type: unspecified pancreatitis type Qualified Code(s): K85.90 - Acute pancreatitis without necrosis or infection, unspecified Code(s): K85.90 - Acute pancreatitis without necrosis or infection, unspecified Status: Acute Assessment and Plan: * MRCP showed acute interstitial pancreatitis with secondary inflammation of the duodenum. No gallstones, no choledocholithiasis, and normal appearing gallbladder. * No indication for laparoscopic cholecystectomy at this time. He can follow-up with Dr. Espinal as an outpatient for further workup of possible gallbladder dysfunction with HIDA scan once this acute issue has resolved. * Continue management per GI (2) Duodenitis: Code(s): K29.80 - Duodenitis without bleeding Status: Acute Plan I have discussed the patient's case and plan of care with Dr. Espinal. Subjective Subjective Date/Time Seen: 07/17/25 13:19 Patient reports: no new complaints, feels better and tolerating liquids well Interval history: No abdominal pain, nausea, or vomiting. Only complaint is muscle soreness in his back from sleeping in the bed. Exam Const: General: comfortable and no acute distress GI: Inspection: non-distended GI Palp: Yes Soft to palpation, No Tenderness to palpation present (GI), No Guarding due to palpation present (GI) and No Rebound tenderness present Auscultation: normal bowel sounds Objective Data Vital Signs Vital Signs: Vital Signs - 24 hr 07/16/25 13:51 07/16/25 20:00 07/16/25 21:21 Temperature 98.4 F 97.1 F L Pulse Rate 88 88 87 Respiratory Rate 16 16 14 Blood Pressure 137/82 130/79 Pulse Oximetry 97 97 97 Oxygen Delivery Room Air 07/16/25 22:46 07/17/25 03:02 07/17/25 05:26 Temperature 98.6 F Pulse Rate 88 94 Respiratory Rate 18 Blood Pressure 140/90 Pulse Oximetry 96 97 Oxygen Delivery CPAP CPAP 07/17/25 09:00 Temperature Pulse Rate Respiratory Rate Blood Pressure Pulse Oximetry Oxygen Delivery Room Air Intake/Output Intake/Output: Intake & Output 07/14/25 07/15/25 07/16/25 07/17/25 23:59 23:59 23:59 23:59 Intake Total 2450 3659.7 2307.1 Output Total 500 500 Balance 2450 3159.7 1807.1 Meds/Results Medications: Active Medications Generic Name Dose Route Start Last Admin Trade Name Freq PRN Reason Stop Dose Admin Acetaminophen 650 mg 07/16/25 10:30 Acetaminophen 325 Mg Tablet PO Q6H PRN Mild Pain (1-3) or Fever Heparin Sodium (Porcine) 5,000 units 07/15/25 22:00 07/17/25 06:29 Heparin Sodium 5,000 Units/Ml Vial SUB-Q 5,000 units Q8HR DAYO Administration Sodium Chloride 1,000 mls @ 125 mls/hr 07/15/25 17:50 07/17/25 13:06 Normal Saline Iv IV CONT 125 mls/hr .Q8H DAYO Administration Ceftriaxone Sodium 1 gm/ 50 mls @ 100 mls/hr 07/15/25 18:20 07/17/25 08:58 Sodium Chloride IVPB 100 mls/hr DAILY DAYO Administration Metronidazole 500 mg in 100 mls @ 100 mls/hr 07/15/25 22:00 07/17/25 06:27 Flagyl 500 Mg/Iso Soln 100 Ml IVPB 100 mls/hr Q8HR DAYO Administration Morphine Sulfate 1 mg 07/15/25 18:16 07/17/25 09:07 Morphine Sulfate (*Crx) 4 Mg/Ml Inj IV PUSH 1 mg Q3HR PRN Administration abdominal pain Ondansetron HCl 4 mg 07/15/25 18:15 07/16/25 21:49 Ondansetron Inj 4 Mg/2 Ml Vial IV PUSH 4 mg Q4HR PRN Administration nausea/vomiting Pantoprazole Sodium 40 mg 07/15/25 21:00 07/17/25 08:58 Pantoprazole Sodium Iv 40 Mg Vial IV PUSH 40 mg Q12HR DAYO Administration Sumatriptan Succinate 100 mg 07/16/25 10:42 07/17/25 07:46 Sumatriptan Succinate 25 Mg Tablet PO 100 mg PRN PRN Administration Migraine Headache Sumatriptan Succinate 100 mg 07/16/25 15:34 Sumatriptan Succinate 25 Mg Tablet PO PRN PRN Migraine Headache Topiramate 100 mg 07/17/25 09:00 07/17/25 12:14 Topiramate 100 Mg Tablet PO 100 mg DAILY DAYO Administration Radiology Results: ITS Impressions Abdomen/Pelvis CT 07/15/25 16:18 IMPRESSION: 1. Thickening of the he of the duodenum and jejunum with small amount of surrounding fat stranding. Duodenitis/ileitis is possible. Recommend follow-up to resolution to exclude an underlying mass. 2. Small hiatal hernia. 3. Grossly stable probable hemangioma in the posterior segment of the right lobe of the liver. 4. There is a 1.5 cm fluid attenuation lesion in the left lobe of the liver which is favored to represent a liver cyst. 5. Possible old mild compression fractures in the lower thoracic spine of indeterminate age. Correlate clinically. 6. Small fat-containing bilateral inguinal hernias, larger on the right. Findings as above. Upper Quadrant Ultrasound 07/16/25 10:04 IMPRESSION: 1. No acute findings. No gallstones or evidence of cholecystitis. 2. Incompletely seen lesion right lobe liver with indeterminate ultrasound characteristics, although CT characteristics most consistent with hemangioma. Recommend six-month follow-up ultrasound. Alternatively, MRI liver protocol for definitive characterization obviating need for future surveillance if in fact a hemangioma. MRCP 07/17/25 11:58 IMPRESSION: 1. Acute interstitial pancreatitis with secondary inflammation of the duodenum. 2. Diffuse hepatic steatosis. 3. Small sliding hiatal hernia. Labs Labs: Laboratory Results - last 24 hr 07/17/25 08:30 WBC 9.7 RBC 4.74 Hgb 13.4 L Hct 39.9 L MCV 84.2 MCH 28.3 MCHC 33.6 RDW 12.3 Plt Count 258 MPV 10.8 H Immature Gran % (Auto) 0.6 H Neut % (Auto) 75.2 H Lymph % (Auto) 14.3 L [place] % (Auto) 8.9 H Eos % (Auto) 0.6 Baso % (Auto) 0.4 Lymph # (Auto) 1.39 [place] # (Auto) 0.9 H Eos # (Auto) 0.1 Baso # (Auto) 0.0 Abs Immat Gran (auto) 0.06 H Absolute Neuts (auto) 7.3 H Absolute Nucleated RBC 0.000 Nucleated RBC % 0.0 Sodium 137 Potassium 3.9 Chloride 105 Carbon Dioxide 24 Anion Gap 8 BUN 14 Creatinine 1.57 H Estim Creat Clear Calc 63 Estimated GFR 47 L Glucose 96 Calcium 8.6 Total Bilirubin 0.9 AST 29 ALT 19 Alkaline Phosphatase 38 Total Protein 6.9 Albumin 4.1 Lipase 130
[2025-07-17 14:00] VITALS: BP 125/73; PULSE 86; RESP 18; TEMP 36.6; O2SAT 97
--- NOTE | 2025-07-17 16:29 | WPDGIPROGNO ---
Progress Note: A&P Assessment and Plan (1) Pancreatitis: Qualifiers: Acute pancreatitis complication: no infection or necrosis Chronicity: acute Pancreatitis type: unspecified pancreatitis type Qualified Code(s): K85.90 - Acute pancreatitis without necrosis or infection, unspecified Code(s): K85.90 - Acute pancreatitis without necrosis or infection, unspecified Status: Acute Assessment and Plan: mrcp reviewed c/w interstitial pancreatitis and reactive duodenitis, also liver steatosis liver enzymes normal will advance diet as tolerated, hopefully home tomorrow then he will follow-up with surgery, he has been having symptoms after eating fatty meals (2) Duodenitis: Code(s): K29.80 - Duodenitis without bleeding Status: Acute Assessment and Plan: this is as consequence of pancreatitis (3) Nausea and vomiting: Qualifiers: Vomiting type: bilious vomiting Qualified Code(s): R11.14 - Bilious vomiting Code(s): R11.2 - Nausea with vomiting, unspecified Status: Acute Assessment and Plan: resolved (4) Abdominal pain: Qualifiers: Abdominal location: upper abdomen, unspecified Qualified Code(s): R10.10 - Upper abdominal pain, unspecified Code(s): R10.9 - Unspecified abdominal pain Status: Acute (5) Liver hemangioma: Code(s): D18.03 - Hemangioma of intra-abdominal structures Status: Acute Assessment and Plan: bening finding Subjective Date/time seen: 07/17/25 16:29 Interval history: overall better, tolerated liquid diet Review of Systems Review of Systems: All systems reviewed & are unremarkable except as noted in HPI and below Exam Const: General: comfortable and no acute distress HENMT: Face/Nose/Sinus: Normal nares present Eyes: General: appearance normal, both eyes and all related structures Neck: Neck: no JVD Resp: Auscultation: clear to auscultation bilaterally Cardio: Rate: regular rate Rhythm: regular rhythm GI: Inspection: non-distended GI Palp: Yes Soft to palpation and No Tenderness to palpation present (GI) Auscultation: normal bowel sounds Skin: General skin exam: normal color Neuro: Speech: normal speech Extrem: General: normal to inspection Psych: Mental Status: mental status grossly normal Objective Data Vital Signs Vital Signs: Vital Signs - 24 hr 07/16/25 20:00 07/16/25 21:21 07/16/25 22:46 Temperature 97.1 F L Pulse Rate 88 87 88 Respiratory Rate 16 14 Blood Pressure 130/79 Pulse Oximetry 97 97 96 Oxygen Delivery Room Air CPAP 07/17/25 03:02 07/17/25 05:26 07/17/25 09:00 Temperature 98.6 F Pulse Rate 94 Respiratory Rate 18 Blood Pressure 140/90 Pulse Oximetry 97 Oxygen Delivery CPAP Room Air 07/17/25 14:00 Temperature 97.9 F Pulse Rate 86 Respiratory Rate 18 Blood Pressure 125/73 Pulse Oximetry 97 Oxygen Delivery Intake/Output Intake/Output: Intake & Output 07/14/25 07/15/25 07/16/25 07/17/25 23:59 23:59 23:59 23:59 Intake Total 2450 3659.7 2407.1 Output Total 500 500 Balance 2450 3159.7 1907.1 Meds/Results Medications: Active Medications Generic Name Dose Route Start Last Admin Trade Name Freq PRN Reason Stop Dose Admin Acetaminophen 650 mg 07/16/25 10:30 Acetaminophen 325 Mg Tablet PO Q6H PRN Mild Pain (1-3) or Fever Heparin Sodium (Porcine) 5,000 units 07/15/25 22:00 07/17/25 14:29 Heparin Sodium 5,000 Units/Ml Vial SUB-Q 5,000 units Q8HR DAYO Administration Sodium Chloride 1,000 mls @ 125 mls/hr 07/15/25 17:50 07/17/25 13:06 Normal Saline Iv IV CONT 125 mls/hr .Q8H DAYO Administration Ceftriaxone Sodium 1 gm/ 50 mls @ 100 mls/hr 07/15/25 18:20 07/17/25 08:58 Sodium Chloride IVPB 100 mls/hr DAILY DAYO Administration Metronidazole 500 mg in 100 mls @ 100 mls/hr 07/15/25 22:00 07/17/25 14:29 Flagyl 500 Mg/Iso Soln 100 Ml IVPB 100 mls/hr Q8HR DAYO Administration Morphine Sulfate 1 mg 07/15/25 18:16 07/17/25 09:07 Morphine Sulfate (*Crx) 4 Mg/Ml Inj IV PUSH 1 mg Q3HR PRN Administration abdominal pain Ondansetron HCl 4 mg 07/15/25 18:15 07/16/25 21:49 Ondansetron Inj 4 Mg/2 Ml Vial IV PUSH 4 mg Q4HR PRN Administration nausea/vomiting Pantoprazole Sodium 40 mg 07/15/25 21:00 07/17/25 08:58 Pantoprazole Sodium Iv 40 Mg Vial IV PUSH 40 mg Q12HR DAYO Administration Sumatriptan Succinate 100 mg 07/16/25 10:42 07/17/25 07:46 Sumatriptan Succinate 25 Mg Tablet PO 100 mg PRN PRN Administration Migraine Headache Sumatriptan Succinate 100 mg 07/16/25 15:34 Sumatriptan Succinate 25 Mg Tablet PO PRN PRN Migraine Headache Topiramate 100 mg 07/17/25 09:00 07/17/25 12:14 Topiramate 100 Mg Tablet PO 100 mg DAILY DAYO Administration Radiology Results: ITS Impressions Abdomen/Pelvis CT 07/15/25 16:18 IMPRESSION: 1. Thickening of the he of the duodenum and jejunum with small amount of surrounding fat stranding. Duodenitis/ileitis is possible. Recommend follow-up to resolution to exclude an underlying mass. 2. Small hiatal hernia. 3. Grossly stable probable hemangioma in the posterior segment of the right lobe of the liver. 4. There is a 1.5 cm fluid attenuation lesion in the left lobe of the liver which is favored to represent a liver cyst. 5. Possible old mild compression fractures in the lower thoracic spine of indeterminate age. Correlate clinically. 6. Small fat-containing bilateral inguinal hernias, larger on the right. Findings as above. Upper Quadrant Ultrasound 07/16/25 10:04 IMPRESSION: 1. No acute findings. No gallstones or evidence of cholecystitis. 2. Incompletely seen lesion right lobe liver with indeterminate ultrasound characteristics, although CT characteristics most consistent with hemangioma. Recommend six-month follow-up ultrasound. Alternatively, MRI liver protocol for definitive characterization obviating need for future surveillance if in fact a hemangioma. MRCP 07/17/25 11:58 IMPRESSION: 1. Acute interstitial pancreatitis with secondary inflammation of the duodenum. 2. Diffuse hepatic steatosis. 3. Small sliding hiatal hernia. Labs Labs: Laboratory Results - last 24 hr 07/17/25 08:30 WBC 9.7 RBC 4.74 Hgb 13.4 L Hct 39.9 L MCV 84.2 MCH 28.3 MCHC 33.6 RDW 12.3 Plt Count 258 MPV 10.8 H Immature Gran % (Auto) 0.6 H Neut % (Auto) 75.2 H Lymph % (Auto) 14.3 L [place] % (Auto) 8.9 H Eos % (Auto) 0.6 Baso % (Auto) 0.4 Lymph # (Auto) 1.39 [place] # (Auto) 0.9 H Eos # (Auto) 0.1 Baso # (Auto) 0.0 Abs Immat Gran (auto) 0.06 H Absolute Neuts (auto) 7.3 H Absolute Nucleated RBC 0.000 Nucleated RBC % 0.0 Sodium 137 Potassium 3.9 Chloride 105 Carbon Dioxide 24 Anion Gap 8 BUN 14 Creatinine 1.57 H Estim Creat Clear Calc 63 Estimated GFR 47 L Glucose 96 Calcium 8.6 Total Bilirubin 0.9 AST 29 ALT 19 Alkaline Phosphatase 38 Total Protein 6.9 Albumin 4.1 Lipase 130
[2025-07-17] MEDS: ACETAMINOPHEN 325 MG TABLET 650 MG PO (18:09)
[2025-07-17] MEDS: SENNA/DOCUSATE SODIUM TABLET 1 TAB PO (21:29)
[2025-07-17 21:47] VITALS: BP 135/92; PULSE 78; RESP 16; TEMP 36.5; O2SAT 98
[2025-07-18] MEDS: ONDANSETRON INJ 4 MG/2 ML VIAL IV PUSH (01:15)
[2025-07-18] MEDS: oxyCODONE/ACETAMINOPHEN (*CRX) 5-325 MG TABLET 1 TABLET PO ×3 (01:17→11:11)
[2025-07-18 04:00] VITALS: BP 148/95
[2025-07-18] MEDS: metroNIDAZOLE 500 MG/ISO 100ML 500 MG/100 ML BAG 100 MG IVPB (05:12)
[2025-07-18 05:58] LABS: Hematocrit 37.1 % (42.0-52.0); Hemoglobin 12.5 g/dL (14.0-18.0); Mean Corpuscular HGB Conc 33.7 g/dl (32-36); Mean Corpuscular Hemoglobin 28.3 pg (26-34); Mean Corpuscular Volume 83.9 fl (80-100); Platelet Count Result 244 k/mm3 (150-375); Red Blood Count 4.42 M/mm3 (4.6-6.20); White Blood Count 9.1 K/mm3 (4.5-10.0)
[2025-07-18 06:00] VITALS: PULSE 74; RESP 16; TEMP 36.8; O2SAT 97
[2025-07-18] MEDS: SODIUM CHLORIDE 0.9% IV 1,000 ML 125 ML IV CONT (06:22)
[2025-07-18 06:24] LABS: Alanine Aminotransferase 18 U/L (6-50); Albumin Level 3.9 g/dL (3.5-5.1); Alkaline Phosphatase 33 U/L (38-126); Anion Gap 11 mmol/L (4-12); Aspartate Amino Transferase 21 U/L (17-59); Bilirubin,Total 0.7 mg/dL (0.2-1.3); Blood Urea Nitrogen 12 mg/dL (9-20); Calcium 8.4 mg/dL (8.4-10.2); Carbon Dioxide 20 mmol/L (22-30); Chloride 105 mmol/L (98-107); Estimated CRCL calculation 71 ml/min; Estimated Glomerular Filt Rate 54; Glucose 91 mg/dL (65-110); Potassium 3.5 mmol/L (3.4-5.0); Sodium 136 mmol/L (137-145); Total Protein 6.7 g/dL (6.3-8.2)
[2025-07-18] MEDS: TOPIRAMATE 100 MG TABLET PO (08:22)
[2025-07-18] MEDS: PANTOPRAZOLE SODIUM IV 40 MG VIAL IV PUSH (08:22)
[2025-07-18] MEDS: cefTRIAXone 1 GM in SODIUM CHLORIDE 0.9% IV 50 ML 100 ML IVPB (08:22)
[2025-07-18] MEDS: ACETAMINOPHEN 325 MG TABLET 650 MG PO (12:48)
--- NOTE | 2025-07-18 12:49 | P.DS_ITS ---
DS: Admitting Diagnosis Discharge Date 07/18/2025 Admitting Diagnosis pancreatitis duodenitis liver hemangioma htn DS: Discharge Diagnosis Discharge Diagnosis (1) Pancreatitis: Qualifiers: Acute pancreatitis complication: no infection or necrosis Chronicity: acute Pancreatitis type: unspecified pancreatitis type Qualified Code(s): K85.90 - Acute pancreatitis without necrosis or infection, unspecified Code(s): K85.90 - Acute pancreatitis without necrosis or infection, unspecified Status: Acute (2) Duodenitis: Code(s): K29.80 - Duodenitis without bleeding Status: Acute (3) Liver hemangioma: Code(s): D18.03 - Hemangioma of intra-abdominal structures Status: Acute (4) Essential (primary) hypertension: Code(s): I10 - Essential (primary) hypertension Status: Acute DS: Summary Hospital Course Reason for hospitalization: pancreatitis duodenitis liver hemangioma htn Hospital Course: 50-year-old male with past medical history of hypertension, hyperlipidemia, fat intolerance presenting with acute abdominal pain. Lipase elevated on admission, returned to WNL with fluids. Surgery and GI consulted. Patient started on emperic antibiotics. Pancreas unremarkable on CT, however duodenitis is possible. Per GI given that the pancreas is normal on CT, symptoms likely related to early pancreatitis or lipase elevation secondary to duodenitis. RUQ US showed no acute findings, gallstones or evidence of cholecystitis. An MRCP was obtained and showed acute interstitial pancreatitis with secondary inflammation of the duodenum. Since MRCP is unremarkable no indication for laparoscopic cholecystectomy per surgery. Patient is to follow up with surgery and GI in the outpatient setting for further workup of possible gallbladder dysfunction and HIDA scan. During admission patient was able to be advanced back to a low-fat diet which he tolerated well denying any nausea/vomiting or abdominal pain. Prior to discharge discussed patient with surgery and GI who were both in agreement with discharge from their perspective and state that patient does not require antibiotics. CT abdomen pelvis also showed a stable probable hemangioma in the posterior segment of the right lobe of the liver and a 1.5 cm fluid attenuation lesion in the left lobe of the liver which is favored to represent a liver cyst. LFTs remain normal. On chart review the liver lesion appears chronic dating back to September 2017. Per GI no further workup required at this time. Patient no complaints at time of discharge denying chest pain, shortness a breath, palpitations, nausea/vomiting, and abdominal pain. Patient was able to ambulate throughout the room and denied any dizziness/lightheadedness. Patient stated he was ready for discharge and felt back to baseline. Patient discharged home with family in a stable condition. He is to follow-up with his primary care provider in 1 week and the specialist as scheduled. Status at Discharge Functional status at discharge: independent ambulation Time Spent with Patient Time attestation: Total time spent providing and/or coordinating discharge services: Time spent: Greater than 30 minutes Exam Narrative: AF HR 74 RR 16 Spo2 97 Bp 148/95 General: male in no acute respiratory distress who is nontoxic appearing, sitting up on side of chair and ambulating throughout room HEENT: Normocephalic. Atraumatic. Extraocular movement intact. Sclera clear and anicteric. No facial asymmetry. Chest: Lungs are clear to auscultation bilaterally. No wheezes or crackles. CV: Heart was regular rate and rhythm. Abd: Abdomen was soft. Nontender. Nondistended. Positive bowel sounds. Neuro: Patient is alert. Speech is clear. DS: Data Data Completed and Pending Completed studies during hospitalization: MRCP upper quadrant US Abdomen/pelvis CT Labs on day of discharge: Labs from last 24 hours 07/18/25 05:27 WBC 9.1 RBC 4.42 L Hgb 12.5 L Hct 37.1 L MCV 83.9 MCH 28.3 MCHC 33.7 RDW 12.1 Plt Count 244 MPV 11.1 H Sodium 136 L Potassium 3.5 Chloride 105 Carbon Dioxide 20 L Anion Gap 11 BUN 12 Creatinine 1.39 H Estim Creat Clear Calc 71 Estimated GFR 54 L Glucose 91 Calcium 8.4 Total Bilirubin 0.7 AST 21 ALT 18 Alkaline Phosphatase 33 L Total Protein 6.7 Albumin 3.9 Discharge Plan Discharge Attending physician on discharge: Sulma Lopez Consulting providers: Maurice Boston; Milla Bliss; Raymon Espinal Discharging Clinician: Milla Bliss Anticipated Discharge Date/Time: 07/18/25 12:20 Patient Disposition: Home Activity: as tolerated Diet: as tolerated and low fat Discharge Instructions: Discharge disposition: Patient admitted to the hospital for pancreatitis and duodenitis Evaluated by surgery and GI during hospitalization No acute surgical intervention required at this time Call Dr. Espinal's office ([phone]) to schedule a follow-up for further workup of your gallbladder. Call Dr. Jenkins's office to schedule a follow up, attached is office information Would recommend continuing a low fat diet to prevent symptoms. Continue Percocet as needed for pain, attached is information on this medication Do not drive or operate heavy machinery on this medication Monitor blood pressures Take caution while standing, rising, or moving Change positions slowly taking a break between each position change If you standing feel dizzy sit back down and take a break Encouraged to continue with yearly vaccinations Return to the emergency department if he developed sudden shortness of breath, chest pain, nausea, vomiting, upset stomach or intractable diarrhea Return to the emergency department if you develop fever greater than 100.5 Follow-up with the primary care physician within 1-2 weeks Thank you for choosing [facility] for your healthcare needs Patient Instructions: Oxycodone/Acetaminophen (By mouth), Pancreatitis (DC), Low Fat Diet (DC), Duodenitis (DC) Patient Language: Mohawk Stand Alone Forms: General Discharge Information Follow-up/Referrals: Trevor Perkins MD [Primary Care Provider, Family Practice] - 1 Week Maurice Boston MD [Physician, Gastroenterology] - Call for Appointment Raymon Espinal DO [Physician, General Surgery] - Call for Appointment Discharge Medications: New oxycodone-acetaminophen 5-325 mg Tablet 1 tablet PO Q4H PRN (Reason: Pain Rated 4-6) Qty: 6 0RF Continued Emgality Pen 120 mg/mL pen injector 120 mg subcut MONTHLY clonazepam [Klonopin] 0.5 mg tablet 0.5 mg PO DAILY PRN (Reason: anxiety) Qty: 30 0RF cholecalciferol (vitamin D3) 50 mcg (2,000 unit) tablet 50 mcg PO DAILY sumatriptan succinate [Imitrex] 100 mg tablet 100 mg PO .COMPLEX PRN (Reason: migraine headache) Rx Instructions: 100 mg orally PRN; atorvastatin 10 mg tablet 10 mg PO QHS fenofibrate 160 mg tablet 160 mg PO DAILY Qty: 90 1RF topiramate 100 mg tablet 100 mg PO DAILY Qty: 90 1RF verapamil 180 mg tablet extended release 180 mg PO DAILY Qty: 100 1RF Held esomeprazole magnesium [Nexium 24HR] 20 mg tablet,delayed release (DR/EC) 20 mg PO DAILY Hold Instructions: Resume on 08/17/25. Hold until follow up with PCP. Date of admission: 07/15/25 17:47 Primary Care Provider: Trevor Perkins Admitting Provider: Shabana Rowe Attending physician on admission: Shabana Rowe Condition: Stable Hospitalist MIPS Heart Failure (Exclusion) Patient has history of Heart Transplant or Left Ventricular Assistive Device?: No IF YES, STOP HERE Heart Failure (Qualifier) Patient has current or prior documentation of LVEF less than or equal to 40%, or mod/servere depressed LVSF?: No IF NO, STOP HERE
--- NOTE | 2025-07-18 16:32 | WPDGIPROGNO ---
Progress Note: A&P Assessment and Plan (1) Pancreatitis: Qualifiers: Acute pancreatitis complication: no infection or necrosis Chronicity: acute Pancreatitis type: unspecified pancreatitis type Qualified Code(s): K85.90 - Acute pancreatitis without necrosis or infection, unspecified Code(s): K85.90 - Acute pancreatitis without necrosis or infection, unspecified Status: Acute Assessment and Plan: doing much better interstitial pancreatitis and reactive duodenitis, also liver steatosis liver enzymes normal and he is going home he will follow-up with surgery, c/o discomfort after eating fatty meals (2) Duodenitis: Code(s): K29.80 - Duodenitis without bleeding Status: Acute Assessment and Plan: this is as consequence of pancreatitis (3) Nausea and vomiting: Qualifiers: Vomiting type: bilious vomiting Qualified Code(s): R11.14 - Bilious vomiting Code(s): R11.2 - Nausea with vomiting, unspecified Status: Acute Assessment and Plan: resolved (4) Abdominal pain: Qualifiers: Abdominal location: upper abdomen, unspecified Qualified Code(s): R10.10 - Upper abdominal pain, unspecified Code(s): R10.9 - Unspecified abdominal pain Status: Acute Assessment and Plan: almost gone Subjective Date/time seen: 07/18/25 11:32 Interval history: I spoke with hospitalist today, patient is much better tolerating diet and ready to go home Review of Systems Review of Systems: All systems reviewed & are unremarkable except as noted in HPI and below Exam Const: General: comfortable and no acute distress HENMT: Face/Nose/Sinus: Normal nares present Eyes: General: appearance normal, both eyes and all related structures Neck: Neck: no JVD Resp: Auscultation: clear to auscultation bilaterally Cardio: Rate: regular rate Rhythm: regular rhythm GI: Inspection: non-distended GI Palp: Yes Soft to palpation Skin: General skin exam: normal color Neuro: General: gait normal Speech: normal speech Extrem: General: normal to inspection Psych: Mental Status: mental status grossly normal Objective Data Vital Signs Vital Signs: Vital Signs - 24 hr 07/17/25 21:47 07/17/25 22:15 07/18/25 04:00 Temperature 97.7 F Pulse Rate 78 Respiratory Rate 16 Blood Pressure 135/92 H 148/95 H Pulse Oximetry 98 Oxygen Delivery Room Air 07/18/25 06:00 Temperature 98.2 F Pulse Rate 74 Respiratory Rate 16 Blood Pressure Pulse Oximetry 97 Oxygen Delivery Intake/Output Intake/Output: Intake & Output 07/15/25 07/16/25 07/17/25 07/18/25 23:59 23:59 23:59 23:59 Intake Total 2450 3659.7 3897.1 1200 Output Total 500 500 Balance 2450 3159.7 3397.1 1200 Meds/Results Radiology Results: ITS Impressions Abdomen/Pelvis CT 07/15/25 16:18 IMPRESSION: 1. Thickening of the he of the duodenum and jejunum with small amount of surrounding fat stranding. Duodenitis/ileitis is possible. Recommend follow-up to resolution to exclude an underlying mass. 2. Small hiatal hernia. 3. Grossly stable probable hemangioma in the posterior segment of the right lobe of the liver. 4. There is a 1.5 cm fluid attenuation lesion in the left lobe of the liver which is favored to represent a liver cyst. 5. Possible old mild compression fractures in the lower thoracic spine of indeterminate age. Correlate clinically. 6. Small fat-containing bilateral inguinal hernias, larger on the right. Findings as above. Upper Quadrant Ultrasound 07/16/25 10:04 IMPRESSION: 1. No acute findings. No gallstones or evidence of cholecystitis. 2. Incompletely seen lesion right lobe liver with indeterminate ultrasound characteristics, although CT characteristics most consistent with hemangioma. Recommend six-month follow-up ultrasound. Alternatively, MRI liver protocol for definitive characterization obviating need for future surveillance if in fact a hemangioma. MRCP 07/17/25 11:58 IMPRESSION: 1. Acute interstitial pancreatitis with secondary inflammation of the duodenum. 2. Diffuse hepatic steatosis. 3. Small sliding hiatal hernia. Labs Labs: Laboratory Results - last 24 hr 07/18/25 05:27 WBC 9.1 RBC 4.42 L Hgb 12.5 L Hct 37.1 L MCV 83.9 MCH 28.3 MCHC 33.7 RDW 12.1 Plt Count 244 MPV 11.1 H Sodium 136 L Potassium 3.5 Chloride 105 Carbon Dioxide 20 L Anion Gap 11 BUN 12 Creatinine 1.39 H Estim Creat Clear Calc 71 Estimated GFR 54 L Glucose 91 Calcium 8.4 Total Bilirubin 0.7 AST 21 ALT 18 Alkaline Phosphatase 33 L Total Protein 6.7 Albumin 3.9
== END 2025-07-18 13:30 | disposition home or self-care (01) ==
LOC: ANHED 18:14 → ANH3MEDSUR 07-16 15:52
PROVIDERS: Emergency Medicine; Student in an Organized Health Care Education/Training Program; Admitting Provider Internal Medicine; Emergency Provider Physician Assistant; PCP Family Medicine; Visit Provider Internal Medicine
DX: K85.90 Acute pancreatitis without necrosis or infection, unspecified (principal); K29.80 Duodenitis without bleeding; D18.03 Hemangioma of intra-abdominal structures; N18.31 Chronic kidney disease, stage 3a; I12.9 Hypertensive chronic kidney disease with stage 1 through stage 4 chronic kidney disease, or unspecified chronic kidney disease; E55.9 Vitamin D deficiency, unspecified; Z80.42 Family history of malignant neoplasm of prostate; E78.5 Hyperlipidemia, unspecified; F41.9 Anxiety disorder, unspecified; Z85.820 Personal history of malignant melanoma of skin; K21.9 Gastro-esophageal reflux disease without esophagitis; G47.30 Sleep apnea, unspecified
CPT/HCPCS: 36415; 74177; 74183; 76376; 76705; 80053; 81003; 83690; 83735; 84478; 85025; 85027; 94003; 96361; 96365; 96366; 96368; 96372; 96374; 96375; 96376; 99285; A9270; A9577; G0378; J0696; J1171; J1644; J1836; J2270; J2405; J2470; J7030; J7120; Q9967